=== PATIENT | female | born 1980 | race Caucasian/White ===

== ENCOUNTER 2016-06-24 12:09 | Emergency (ER) | payer MEDICAID, OTHER ==
--- NOTE | 2016-06-24 12:17 | ER Document Report ---
ED Medical Screen (RME) - General Stated Complaint: BUMPS UNDER ARM Mode of Arrival: Ambulatory Information source: Patient Notes: She presents to the emergency department with bumps under her arms. She reports bumps for months. no obvious abscess noted I have greeted and performed a rapid initial assessment of this patient. A comprehensive ED assessment and evaluation of the patient, analysis of test results and completion of the medical decision making process will be conducted by additional ED providers. TRAVEL OUTSIDE OF THE [place] IN LAST 30 DAYS: No - Related Data Allergies/Adverse Reactions: Sulfa (Sulfonamide Antibiotics) Allergy (Severe, Verified 06/24/16 12:18) hives,rash tramadol HCl [From Ultram] Allergy (Intermediate, Verified 06/24/16 12:18) Hives etodolac [From Lodine] Allergy (Verified 06/24/16 12:18) prednisone [Prednisone] Allergy (Verified 06/24/16 12:18) Past Medical History - Past Medical History Cardiac Medical History: Denies: Hx Coronary Artery Disease, Hx Heart Attack, Hx Hypertension - low Pulmonary Medical History: Denies: Hx Asthma, Hx Bronchitis, Hx COPD, Hx Pneumonia Neurological Medical History: Reports: Hx Migraine. Denies: Hx Cerebrovascular Accident, Hx Seizures Musculoskeltal Medical History: Denies Hx Arthritis Psychiatric Medical History: Reports: Hx Depression Past Surgical History: Reports: Hx Appendectomy, Hx Orthopedic Surgery - spinal fusion, left wrist - Immunizations Immunizations up to date: Yes Hx Diphtheria, Pertussis, Tetanus Vaccination: No Physical Exam - Vital signs Vitals: Temp Pulse Resp BP Pulse Ox 98.1 F 97 16 117/77 98 06/24/16 12:15 06/24/16 12:15 06/24/16 12:15 06/24/16 12:15 06/24/16 12:15 Course - Vital Signs Vital signs: Temp Pulse Resp BP Pulse Ox 98.1 F 97 16 117/77 98 06/24/16 12:15 06/24/16 12:15 06/24/16 12:15 06/24/16 12:15 06/24/16 12:15
--- NOTE | 2016-06-24 13:04 | ER Document Report ---
ED Skin Rash/Insect Bite/Abscs - General Chief Complaint: Skin Problem Stated Complaint: BUMPS UNDER ARM Time seen by provider: 12:56 Mode of Arrival: Ambulatory Information source: Patient Notes: 36-year-old female presents to ED for months under her arm and rash to her legs in between her toes. States she will need Diflucan for any antibiotics and she is itching to her arms legs and feet. TRAVEL OUTSIDE OF THE [place] IN LAST 30 DAYS: No - HPI Patient complains to provider of: Skin rash/lesion, Tender/swollen area, Other - Possible scabies as nausea Onset: Other - Several days Onset/Duration: Persistent Quality of pain: Sharp Severity: Moderate Skin Character: Abscess - Very small abscess not able to open, Erythema, Linear - Rash to legs and feet, Rash, Tenderness - Abscess under right axilla Quality of rash: Itchy - Arms and legs, Painful - abscess to axilla Exacerbated by: Denies Relieved by: Denies Similar symptoms previously: Yes Recently seen / treated by doctor: Yes - Related Data Allergies/Adverse Reactions: Sulfa (Sulfonamide Antibiotics) Allergy (Severe, Verified 06/24/16 12:18) hives,rash tramadol HCl [From Ultram] Allergy (Intermediate, Verified 06/24/16 12:18) Hives etodolac [From Lodine] Allergy (Verified 06/24/16 12:18) prednisone [Prednisone] Allergy (Verified 06/24/16 12:18) Past Medical History - General Information source: Patient - Social History Smoking Status: Current Every Day Smoker Cigarette use (# per day): Yes - 8 cigarettes a day Chew tobacco use (# tins/day): No Smoking Education Provided: Yes - less than 2 minutes Frequency of alcohol use: Rare Drug Abuse: None Occupation: none Lives with: Family Family History: Arthritis, DM, Hypertension, Malignancy Patient has suicidal ideation: No Patient has homicidal ideation: No - Past Medical History Cardiac Medical History: Reports: None Pulmonary Medical History: Reports: None EENT Medical History: Reports: None Neurological Medical History: Reports: Hx Migraine Endocrine Medical History: Reports: None Renal/ Medical History: Reports: None, Hx Ovarian Cysts Malignancy Medical History: Reports: None GI Medical History: Reports: None Musculoskeltal Medical History: Reports Hx Arthritis, Reports Hx Musculoskeletal Deformity, Reports Hx Musculoskeletal Trauma Skin Medical History: Reports Hx Cellulitis Psychiatric Medical History: Reports: Hx Depression, Hx Post Traumatic Stress Disorder, Other - Panic attacks Traumatic Medical History: Reports: None Infectious Medical History: Reports: None Past Surgical History: Reports: Hx Appendectomy, Hx Orthopedic Surgery - spinal fusion, left wrist - Immunizations Immunizations up to date: Yes Hx Diphtheria, Pertussis, Tetanus Vaccination: No Review of Systems - Review of Systems Constitutional: No symptoms reported EENT: No symptoms reported Cardiovascular: No symptoms reported Respiratory: No symptoms reported Gastrointestinal: Nausea Genitourinary: No symptoms reported Female Genitourinary: No symptoms reported Musculoskeletal: No symptoms reported Skin: Rash, Other - Swollen red area to right axilla minimal abscess Neurological/Psychological: No symptoms reported Physical Exam - Vital signs Vitals: Temp Pulse Resp BP Pulse Ox 98.1 F 97 16 117/77 98 06/24/16 12:15 06/24/16 12:15 06/24/16 12:15 06/24/16 12:15 06/24/16 12:15 Interpretation: Normal - General General appearance: Appears well, Alert - HEENT Head: Normocephalic, Atraumatic Eyes: Normal Pupils: PERRL - Respiratory Respiratory status: No respiratory distress Chest status: Nontender Breath sounds: Normal Chest palpation: Normal - Cardiovascular Rhythm: Regular Heart sounds: Normal auscultation Murmur: No - Abdominal Inspection: Normal Distension: No distension Bowel sounds: Normal Tenderness: Nontender Organomegaly: No organomegaly - Back Back: Normal, Nontender - Extremities General upper extremity: Normal inspection, Nontender, Normal color, Normal ROM , Normal temperature General lower extremity: Normal inspection, Nontender, Normal color, Normal ROM , Normal temperature, Normal weight bearing. No: Radha's sign - Neurological Neuro grossly intact: Yes Cognition: Normal Orientation: AAOx4 [place] Coma Scale Eye Opening: Spontaneous [place] Coma Scale Verbal: Oriented [place] Coma Scale Motor: Obeys Commands [place] Coma Scale Total: 15 Speech: Normal Motor strength normal: LUE, RUE, LLE, RLE Sensory: Normal - Psychological Associated symptoms: Normal affect, Normal mood - Skin Skin Temperature: Warm Skin Moisture: Dry Skin Color: Normal Skin irregularity: Abscess - Very minimal abscess to the right axilla, Rash - Probable scabies arms and legs feet Character of irregularity: Fine, Linear - Rash Irregularity with: Swelling, Tenderness, Warmth Course - Re-evaluation Re-evalutation: 06/24/16 13:16 Patient treated with promethazine for the possible scabies. She is treated with doxycycline for the abscess to the right axilla, she was given Diflucan to take one time after she has finished with her antibiotics - Vital Signs Vital signs: Temp Pulse Resp BP Pulse Ox 98.1 F 97 16 117/77 98 06/24/16 12:15 06/24/16 12:15 06/24/16 12:15 06/24/16 12:15 06/24/16 12:15 Discharge - Discharge Clinical Impression: Cutaneous abscess of right axilla, Rash and nonspecific skin eruption Condition: Stable Disposition: HOME, SELF-CARE Instructions: Family Physicians / Practices Additional Instructions: ABSCESS: You have an abscess (boil). This a pus-forming infection, usually due to staph. Some boils may be left to drain on their own, but most require lancing. From the time the tender lump first appears, it may be three or four days before the abscess is ready to mignon. Local heat and rest help at this stage of treatment. An antibiotic may prevent spread of the infection. Once the abscess is opened, packing may be placed into it. This is done so pus is not sealed inside by premature closure of the cavity. The packing will be removed at your follow-up visit or you may be advised to remove it yourself at home. Sometimes this packing must be replaced a few times during healing. The wound will heal with surprisingly little scar. Depending on the size and location of an abscess, healing can take one to four weeks. You may shower and wash the area around the incision site two or three times a day. Antibiotics may be prescribed, but are usually not necessary after an abscess has been drained. If you develop fever, chills, worsening pain, or increasing swelling in the area, call the doctor or return immediately. Scabies Your exam suggests the presence of scabies, which are microscopic parasites of the skin. These mites rell through the skin, causing severe itching. The mite can be spread to other persons by skin contact. All clothing, towels, and bedding should be washed in very hot water, set aside for a week, then washed again. You should apply scabies-killing lotion from the neck down, then wash it off after 12 hours. You may need medication for itching, as the itch persists for many days after the mites have been killed. All family members and close personal contacts should be examined. Repeat treatment may be necessary if the infestation is not eliminated with a single treatment. Call the doctor if you develop increasing swelling and redness, red streaks , tender lumps, fever, or drainage from a skin sore. DOXYCYCLINE: Doxycycline (Vibramycin, Doryx) is an antibiotic of the tetracycline family. This type of drug is useful for infections of the respiratory tract and genital tract, and is sometimes used for intestinal infections. Unlike most tetracyclines, doxycycline can be taken with food. It is longer acting, and (usually) less prone to side effects than regular tetracycline. Tetracycline antibiotics can stain immature teeth and SHOULD NOT BE TAKEN BY CHILDREN, NURSING MOTHERS, OR WOMEN. Tetracyclines can make you more prone to sunburn. Abdominal cramping, nausea, and diarrhea are occasional side effects. Women may experience vaginal yeast infections. Call the doctor at once if you develop hives, itching, shortness of breath , or lightheadedness. Fluconazole Fluconazole (Diflucan) is an antifungal drug. It is useful for serious fungal infections, but is also excellent for oral or vaginal yeast infections. Diflucan interacts with some medicines. This is a concern if you are taking anticoagulants (such as Coumadin), phenytoin (Dilantin), cyclosporin, or oral hypoglycemics (such as tolbutamide, Orinase, glipizide, Glucotrol, glyburide, DiaBeta, Glynase, and Micronase). Be sure the doctor knows if you are taking one of these medicines. We don't know how Diflucan affects . If you are planning to become , discuss this with your doctor. Diflucan has few side effects. Minor side effects may include nausea, headache, or diarrhea. Call the doctor if you develop a skin rash, shortness of breath, or other new symptoms. FOLLOW-UP CARE: Most simple abscesses will not require a follow up visit. If you had packing placed in the abscess, remove it as instructed by the physician. If you have been referred to a physician for follow-up care, call the physicians office for an appointment as you were instructed or within the next two days. If you experience worsening or a significant change in your symptoms, return to the Emergency Department at any time for re-evaluation. Prescriptions: Promethazine HCl [Phenergan 25 mg Tablet] 25 - 50 mg PO Q6HP PRN #12 tablet PRN Reason: Doxycycline Hyclate [Vibramycin 100 mg Tablet] 100 mg PO BID #20 tablet Fluconazole [Diflucan] 150 mg PO ONCE PRN #1 tablet PRN Reason: Permethrin [Elimite] 60 gm TP ONCE #60 gm Forms: Smoking Cessation Education
[2016-06-24 13:40] VITALS: BP 104/66
== END 2016-06-24 12:35 | disposition home or self-care (01) ==
LOC: ER 12:09
DX: L02.411 Cutaneous abscess of right axilla (principal); R21 Rash and other nonspecific skin eruption; F17.210 Nicotine dependence, cigarettes, uncomplicated
CPT/HCPCS: 99283

== ENCOUNTER 2016-07-25 14:32 | Emergency (ER) | payer SELFPAY ==
--- NOTE | 2016-07-25 14:56 | ER Document Report ---
ED Medical Screen (RME) - General Chief Complaint: Lower Abdominal Pain Stated Complaint: ABDOMINAL PAIN Notes: This 36-year-old female patient comes in from complaining of a two-week history of lower abdominal pain with vomiting. She thinks it may be due to . Last menstrual period started on 07/06/2016 I have greeted and performed a rapid initial assessment of this patient. A comprehensive ED assessment and evaluation of the patient, analysis of test results and completion of the medical decision making process will be conducted by additional ED providers. TRAVEL OUTSIDE OF THE [place] IN LAST 30 DAYS: No - Related Data Allergies/Adverse Reactions: Sulfa (Sulfonamide Antibiotics) Allergy (Severe, Verified 07/25/16 14:35) hives,rash tramadol HCl [From Ultram] Allergy (Intermediate, Verified 07/25/16 14:35) Hives etodolac [From Lodine] Allergy (Verified 07/25/16 14:35) prednisone [Prednisone] Allergy (Verified 07/25/16 14:35) Past Medical History - Past Medical History Cardiac Medical History: Denies: Hx Coronary Artery Disease, Hx Heart Attack, Hx Hypertension - low Pulmonary Medical History: Denies: Hx Asthma, Hx Bronchitis, Hx COPD, Hx Pneumonia Neurological Medical History: Reports: Hx Migraine. Denies: Hx Cerebrovascular Accident, Hx Seizures Renal/ Medical History: Reports: Hx Ovarian Cysts. Denies: Hx Peritoneal Dialysis Musculoskeltal Medical History: Denies Hx Arthritis, Reports Hx Musculoskeletal Deformity, Reports Hx Musculoskeletal Trauma Skin Medical History: Reports Hx Cellulitis Psychiatric Medical History: Reports: Hx Depression, Hx Post Traumatic Stress Disorder Past Surgical History: Reports: Hx Appendectomy, Hx Orthopedic Surgery - spinal fusion, left wrist - Immunizations Immunizations up to date: Yes Hx Diphtheria, Pertussis, Tetanus Vaccination: No Physical Exam - Vital signs Vitals: Temp Pulse Resp BP Pulse Ox 98.5 F 133 H 20 138/93 H 99 07/25/16 14:36 07/25/16 14:36 07/25/16 14:36 07/25/16 14:36 07/25/16 14:36 Course - Vital Signs Vital signs: Temp Pulse Resp BP Pulse Ox 98.5 F 133 H 20 138/93 H 99 07/25/16 14:36 07/25/16 14:36 07/25/16 14:36 07/25/16 14:36 07/25/16 14:36
[2016-07-25 15:29] LABS: ABSOLUTE BASOPHILS # (AUTO) 0.1 10^3/uL (0.0-0.2); ABSOLUTE EOSINOPHILS # (AUTO) 0.1 10^3/uL (0.0-0.6); ABSOLUTE LYMPHOCYTES (AUTO) 2.6 10^3/uL (0.5-4.7); ABSOLUTE MONOCYTES (AUTO) 0.8 10^3/uL (0.1-1.4); ABSOLUTE NEUT (AUTO) 12.3 10^3/uL (1.7-8.2); BASOPHILS % (AUTO) 0.5 % (0-2); EOSINOPHILS % (AUTO) 0.5 % (0-6); HEMATOCRIT 50.4 % (36.0-47.0); HEMOGLOBIN 16.9 g/dL (12.0-15.5); HGB HCT DIFFERENCE 0.3; LYMPHOCYTES % (AUTO) 16.1 % (13-45); MEAN CORPUSCULAR HEMOGLOBIN 30.3 pg (27.0-33.4); MEAN CORPUSCULAR HGB CONC 33.4 g/dL (32.0-36.0); MEAN CORPUSCULAR VOLUME 91 fl (80-97); RED BLOOD COUNT 5.56 10^6/uL (3.72-5.28); RED CELL DISTRIBUTION WIDTH 12.4 % (11.5-14.0); SEGMENTED NEUTROPHILS % (AUTO) 77.9 % (42-78); WHITE BLOOD COUNT 15.8 10^3/uL (4.0-10.5)
[2016-07-25 15:44] LABS: APPEARANCE,URINE CLOUDY; BILIRUBIN,URINE NEGATIVE (NEGATIVE); GLUCOSE, URINE NEGATIVE (NEGATIVE); KETONES,URINE NEGATIVE (NEGATIVE); LEUKOCYTE ESTERASE,URINE SMALL (NEGATIVE); NITRITE,URINE NEGATIVE (NEGATIVE); PROTEIN,URINE NEGATIVE (NEGATIVE); URINE SPECIFIC GRAVITY 1.005; UROBILINOGEN,URINE NEGATIVE mg/dL (<2.0)
[2016-07-25 16:02] LABS: ALANINE AMINOTRANSFERASE 24 U/L (9-52); ALBUMIN 5.1 g/dL (3.5-5.0); ALKALINE PHOSPHATASE 108 U/L (38-126); ANION GAP 17 (5-19); ASPARTATE AMINO TRANSFERASE 18 U/L (14-36); BILIRUBIN,DIRECT 0.4 mg/dL (0.0-0.4); BILIRUBIN,TOTAL 0.6 mg/dL (0.2-1.3); BLOOD UREA NITROGEN 12 mg/dL (7-20); CALCIUM 10.6 mg/dL (8.4-10.2); CARBON DIOXIDE 26 mmol/L (22-30); CHLORIDE 99 mmol/L (98-107); CREATININE RESULT 0.87 mg/dL (0.52-1.25); GLUCOSE 103 mg/dL (75-110); POTASSIUM 4.5 mmol/L (3.6-5.0); SODIUM 141.6 mmol/L (137-145); TOTAL PROTEIN 9.2 g/dL (6.3-8.2)
--- NOTE | 2016-07-25 17:36 | ER Document Report ---
ED GI/ - General Chief Complaint: Lower Abdominal Pain Stated Complaint: ABDOMINAL PAIN Time seen by provider: 17:36 Mode of Arrival: Ambulatory Information source: Patient Notes: 36-year-old female G0 is convinced that she is because she has had some pelvic discomfort, nausea, bilateral spontaneous nipple discharge, fatigue , and no menses since May. She has missed periods before. No dysuria frequency or urgency. No vaginal discharge with an odor. No fever or chills. TRAVEL OUTSIDE OF THE [place] IN LAST 30 DAYS: No - Related Data Allergies/Adverse Reactions: Sulfa (Sulfonamide Antibiotics) Allergy (Severe, Verified 07/25/16 14:35) hives,rash tramadol HCl [From Ultram] Allergy (Intermediate, Verified 07/25/16 14:35) Hives etodolac [From Lodine] Allergy (Verified 07/25/16 14:35) prednisone [Prednisone] Allergy (Verified 07/25/16 14:35) Past Medical History - General Information source: Patient - Social History Smoking Status: Unknown if Ever Smoked Frequency of alcohol use: None Drug Abuse: None Lives with: Family Family History: Arthritis, DM, Hypertension, Malignancy Patient has suicidal ideation: No Patient has homicidal ideation: No Neurological Medical History: Reports: Hx Migraine Renal/ Medical History: Reports: Hx Ovarian Cysts. Denies: Hx Peritoneal Dialysis Musculoskeltal Medical History: Reports Hx Musculoskeletal Deformity, Reports Hx Musculoskeletal Trauma Skin Medical History: Reports Hx Cellulitis Psychiatric Medical History: Reports: Hx Depression, Hx Post Traumatic Stress Disorder Past Surgical History: Reports: Hx Appendectomy, Hx Orthopedic Surgery - spinal fusion, left wrist - Immunizations Immunizations up to date: Yes Hx Diphtheria, Pertussis, Tetanus Vaccination: No Review of Systems - Review of Systems Constitutional: See HPI EENT: No symptoms reported Cardiovascular: No symptoms reported Respiratory: No symptoms reported Gastrointestinal: See HPI Genitourinary: No symptoms reported Female Genitourinary: See HPI Musculoskeletal: No symptoms reported Skin: No symptoms reported Hematologic/Lymphatic: No symptoms reported Neurological/Psychological: See HPI Physical Exam - Vital signs Vitals: Temp Pulse Resp BP Pulse Ox 98.5 F 133 H 20 138/93 H 99 07/25/16 14:36 07/25/16 14:36 07/25/16 14:36 07/25/16 14:36 07/25/16 14:36 Interpretation: Normal - General General appearance: Appears well, Alert In distress: None - HEENT Head: Normocephalic, Atraumatic Eyes: Normal Pupils: PERRL Mucous membranes: Normal Pharynx: Normal Neck: Supple. No: Lymphadenopathy - Respiratory Respiratory status: No respiratory distress Chest status: Nontender Breath sounds: Normal Chest palpation: Normal - Cardiovascular Rhythm: Regular Heart sounds: Normal auscultation Murmur: No - Abdominal Inspection: Normal Distension: No distension Bowel sounds: Normal Tenderness: Nontender. No: Tender Organomegaly: No organomegaly - Back Back: Normal, Nontender. No: CVA tenderness - Extremities General upper extremity: Normal inspection, Nontender, Normal color, Normal ROM , Normal temperature General lower extremity: Normal inspection, Nontender, Normal color, Normal ROM , Normal temperature, Normal weight bearing. No: Radha's sign - Neurological Neuro grossly intact: Yes Cognition: Normal Orientation: AAOx4 [place] Coma Scale Eye Opening: Spontaneous [place] Coma Scale Verbal: Oriented [place] Coma Scale Motor: Obeys Commands [place] Coma Scale Total: 15 Speech: Normal Motor strength normal: LUE, RUE, LLE, RLE Sensory: Normal - Psychological Associated symptoms: Normal affect, Normal mood - Skin Skin Temperature: Warm Skin Moisture: Dry Skin Color: Normal Skin irregularity: negative: Rash Course - Re-evaluation Re-evalutation: 07/25/16 17:53 pt wants to leave pending the TSH and will call me back for the results.. I discussed that her PCP christine primary [facility] can work up the symptoms further - I have added Prolactin level also. 07/25/16 18:00 - Vital Signs Vital signs: Temp Pulse Resp BP Pulse Ox 98.3 F 102 H 18 115/85 99 07/25/16 18:32 07/25/16 18:32 07/25/16 18:32 07/25/16 18:32 07/25/16 18:32 - Laboratory Result Diagrams: 07/25/16 15:20 07/25/16 15:20 Laboratory results interpreted by me: 07/25/16 07/25/16 07/25/16 15:20 15:20 15:20 WBC 15.8 H RBC 5.56 H Hgb 16.9 H Hct 50.4 H Absolute Neutrophils 12.3 H Calcium 10.6 H Total Protein 9.2 H Albumin 5.1 H Ur Leukocyte Esterase SMALL H Discharge - Discharge Clinical Impression: Bilateral galactorrhea, Amenorrhea, Nausea, urinary frequency, Lower abdominal pain Fatigue Qualifiers: Fatigue type: unspecified Qualified Code(s): R53.83 - Other fatigue Condition: Good Disposition: HOME, SELF-CARE Instructions: Fatigue ([facility]) Additional Instructions: you were seen in the ER today for group of symtpoms that are concerning for pituitary gland disfunction. The TSH and Prolactin level or pending, call me in 2 hours [phone] for the results your primary care doctor will have to order further testing for the symptoms. copy of labwork given to you. Please complete the patient satisfaction survey if you get one, and return it.. If you do not receive a survey, then you can go to the [facility] website, [email or web address] and place your comments about your very good care. Thank you very much. It was a pleasure being your medical provider today. Referrals: ETHAN GUZMAN I, DO [Primary Care Provider] - Follow up tomorrow
[2016-07-25 18:33] VITALS: BP 115/85
== END 2016-07-25 18:33 | disposition home or self-care (01) ==
LOC: ER 14:32
DX: N64.3 Galactorrhea not associated with childbirth (principal); N91.2 Amenorrhea, unspecified; R11.0 Nausea; R35.0 Frequency of micturition; R10.30 Lower abdominal pain, unspecified; R10.2 Pelvic and perineal pain; R53.83 Other fatigue; Z98.1 Arthrodesis status; Z88.2 Allergy status to sulfonamides
CPT/HCPCS: 36415; 80053; 81001; 84146; 84443; 84703; 85025; 99284

== ENCOUNTER 2016-11-18 11:51 | Emergency (ER) | payer SELFPAY ==
--- NOTE | 2016-11-18 12:11 | ER Document Report ---
HPI - HPI Patient complains to provider of: sore throat, rash under left axilla Onset: Other Onset/Duration: Gradual Quality of pain: Burning Severity: Severe Pain Level: 5 Context: Patient states she has had a sore throat and nasal drainage for 3-4 days. States she had a fever of 99.6. Taking occasional Benadryl for sinuses. Associated Symptoms: Fever, Rhinnorhea, Sore throat Exacerbated by: Denies Relieved by: Denies Similar symptoms previously: Yes Recently seen / treated by doctor: No - ROS ROS below otherwise negative: Yes Systems Reviewed and Negative: Yes All other systems reviewed and negative - CONSTITUTIONAL Constitutional: REPORTS: Fever - EENT EENT: REPORTS: Sore Throat, Nasal Drainage-Clear - NEURO Neurology: DENIES: Headache - CARDIOVASCULAR Cardiovascular: DENIES: Chest pain - RESPIRATORY Respiratory: DENIES: Trouble Breathing - GASTROINTESTINAL Gastrointestinal: DENIES: Abdominal Pain - URINARY Urinary: DENIES: Dysuria - REPRODUCTIVE Reproductive: DENIES: : - MUSCULOSKELETAL Musculoskeletal: DENIES: Extremity pain - DERM Skin Color: Normal Skin Problems: None Past Medical History - General Information source: Patient - Social History Smoking Status: Current Every Day Smoker Cigarette use (# per day): Yes Frequency of alcohol use: None Drug Abuse: None Lives with: Family Family History: Arthritis, DM, Hypertension, Malignancy Patient has suicidal ideation: No Patient has homicidal ideation: No Neurological Medical History: Reports: Hx Migraine Renal/ Medical History: Reports: Hx Ovarian Cysts Musculoskeltal Medical History: Reports Hx Musculoskeletal Deformity, Reports Hx Musculoskeletal Trauma Skin Medical History: Reports Hx Cellulitis Psychiatric Medical History: Reports: Hx Depression, Hx Post Traumatic Stress Disorder Past Surgical History: Reports: Hx Appendectomy, Hx Orthopedic Surgery - spinal fusion, left wrist - Immunizations Immunizations up to date: Yes Hx Diphtheria, Pertussis, Tetanus Vaccination: No Vertical Provider Document - CONSTITUTIONAL Agree With Documented VS: Yes Exam Limitations: No Limitations General Appearance: WD/WN, No Apparent Distress - INFECTION CONTROL TRAVEL OUTSIDE OF THE [place] IN LAST 30 DAYS: No - HEENT HEENT: Atraumatic, Normocephalic, Pharyngeal Erythema. negative: Pharyngeal Exudate Notes: TMs dull bilaterally. - NECK Neck: Normal Inspection, Supple. negative: Lymphadenopathy-Left, Lymphadenopathy-Right - RESPIRATORY Respiratory: Breath Sounds Normal, No Respiratory Distress O2 Sat by Pulse Oximetry: 99 - CARDIOVASCULAR Cardiovascular: Regular Rhythm, Tachycardia - GI/ABDOMEN Gastrointestinal: Abdomen Soft - MUSCULOSKELETAL/EXTREMETIES Musculoskeletal/Extremeties: MAEW - NEURO Level of Consciousness: Awake, Alert, Appropriate - DERM Integumentary: Warm, Dry, Rash Notes: scattered red papules under left axilla, pt states she has had abscesses there before but they keep coming back. Non fluctuant today. Course - Vital Signs Vital signs: Temp Pulse Resp BP Pulse Ox 99.1 F 120 H 16 125/82 99 11/18/16 12:01 11/18/16 12:01 11/18/16 12:01 11/18/16 12:01 11/18/16 12:01 Discharge - Discharge Clinical Impression: Sore throat, Hidradenitis suppurativa of left axilla Condition: Good Disposition: HOME, SELF-CARE Instructions: Sore Throat ([facility]) Additional Instructions: take meds as prescribed strep test negative, sore throat most likely due to post nasal drainage Take claritin or zyrtec daily, sudafed if congested push fluids warm compesses to left axilla follow up with surgeon regarding recurring abscesses to left axilla. No abscess noted today, Prescriptions: Amoxicillin 1 tab PO TID #30 tab
[2016-11-18] MEDS ORDERED: ACETAMINOPHEN 325 MG TABLET PO ONE (12:16)
[2016-11-18 13:14] VITALS: BP 115/89
== END 2016-11-18 13:15 | disposition home or self-care (01) ==
LOC: ER 11:51
DX: L73.2 Hidradenitis suppurativa (principal); J02.9 Acute pharyngitis, unspecified; R21 Rash and other nonspecific skin eruption; R50.9 Fever, unspecified; F17.210 Nicotine dependence, cigarettes, uncomplicated
CPT/HCPCS: 87070; 87880; 99283

== ENCOUNTER 2017-01-29 21:50 | Emergency (ER) | payer SELFPAY ==
[2017-01-29 22:05] VITALS: BP 139/96
[2017-01-29] MEDS ORDERED: DIPH/PERTUSS(ACELL)/TETANUS VAC/PF 0.5 ML SYR (>=10YO) IM ONE (23:27)
[2017-01-29] MEDS ORDERED: LIDOCAINE 1% INJ-PF (10 MG/ML) 30 ML SDV INJ ONE (23:27)
--- NOTE | 2017-01-29 23:30 | ER Document Report ---
ED Wound - General Chief Complaint: Laceration Stated Complaint: ARM LACERATION Mode of Arrival: Ambulatory Information source: Patient TRAVEL OUTSIDE OF THE [place] IN LAST 30 DAYS: No - HPI Patient complains to provider of: Laceration Occurred: Just prior to arrival Onset/Duration: Sudden Quality of pain: Burning Severity: Mild Context: Injury Skin Color: Normal Capillary refill: < 3 seconds Sensations intact: Yes Distal pulses present: Yes Associated Symptoms: denies: Bleeding, Dehiscence, Drainage, Redness, Swelling, Loss of consciousness Notes: Patient states she was walking with an open knife when she tripped over a rug in her bathroom and fell and accidentally cut her left wrist. She is noted to have a laceration that goes from the left wrist detention up the left forearm. The middle portion which is approximately 5 cm long is slightly gaped and open. The remainder of the laceration is superficial and approximated. No redness, no swelling, no numbness, tingling, weakness. No other injuries. No nausea, vomiting, diarrhea. She denies any other injuries or any other complaints at this time. - Related Data Allergies/Adverse Reactions: Sulfa (Sulfonamide Antibiotics) Allergy (Severe, Verified 07/25/16 14:35) hives,rash tramadol HCl [From Ultram] Allergy (Intermediate, Verified 07/25/16 14:35) Hives etodolac [From Lodine] Allergy (Verified 07/25/16 14:35) prednisone [Prednisone] Allergy (Verified 07/25/16 14:35) Past Medical History - Social History Smoking Status: Unknown if Ever Smoked Family History: Arthritis, DM, Hypertension, Malignancy Patient has suicidal ideation: No Patient has homicidal ideation: No - Past Medical History Cardiac Medical History: Denies: Hx Coronary Artery Disease, Hx Heart Attack, Hx Hypertension - low Pulmonary Medical History: Denies: Hx Asthma, Hx Bronchitis, Hx COPD, Hx Pneumonia Neurological Medical History: Reports: Hx Migraine. Denies: Hx Cerebrovascular Accident, Hx Seizures Renal/ Medical History: Reports: Hx Ovarian Cysts. Denies: Hx Peritoneal Dialysis Musculoskeltal Medical History: Denies Hx Arthritis, Reports Hx Musculoskeletal Deformity, Reports Hx Musculoskeletal Trauma Skin Medical History: Reports Hx Cellulitis Psychiatric Medical History: Reports: Hx Depression, Hx Post Traumatic Stress Disorder Past Surgical History: Reports: Hx Appendectomy, Hx Orthopedic Surgery - spinal fusion, left wrist - Immunizations Immunizations up to date: Yes Hx Diphtheria, Pertussis, Tetanus Vaccination: No Review of Systems - Review of Systems -: Yes All other systems reviewed and negative Physical Exam - Vital signs Vitals: Temp Pulse Resp BP Pulse Ox 98.1 F 120 H 18 139/96 H 100 01/29/17 22:02 01/29/17 22:02 01/29/17 22:02 01/29/17 22:02 01/29/17 22:02 - Notes Notes: GENERAL: alert, cooperative, nontoxic, no distress. HEAD: normocephalic, atraumatic EYES: conjunctiva pink without discharge, no external redness or swelling. EARS: no external swelling, no external redness NOSE: atraumatic, no external swelling MOUTH/THROAT: mucous membranes moist and pink NECK: soft, supple, full range of motion, no meningismus. CHEST: no distress, lungs clear and equal throughout. No wheezing, rales, rhonchi. CARDIAC: regular rate and rhythm, no murmur, normal capillary refill, normal pulses. BACK: full range of motion, no CVA tenderness. EXTREMITIES: full range of motion of all extremities. No redness, no swelling. Compartments are soft. Normal neurovascular exam. Normal pulse. Normal sensation. NEURO: alert and oriented 3, no focal deficits, full range of motion of all extremities. PYSCH: appropriate mood, affect. Patient is cooperative. SKIN: pink, warm, dry, no rash. Laceration from the wrist to the mid forearm of the left arm volar aspect. The middle portion of the laceration measuring 5 cm is through the subcutaneous tissue and slightly gaped open. The proximal and distal portions of the laceration are superficial and well approximated. There is no active bleeding. No foreign body. No tendon laceration. Fascia is intact. Course - Re-evaluation Re-evalutation: 01/29/17 23:59 Patient is nontoxic appearing with stable vitals. The patient had a laceration to her forearm. In the process of getting the laceration tray pulled and set up the patient apparently left the emergency department prior to me being able to suture her laceration. She denies any homicidal suicidal ideation, she states that this was purely an accident. She has family here with her that system engineer for that. Laceration was not actively bleeding and the patient was in no acute distress. Patient eloped the emergency department prior to laceration repair receiving any sort of discharge papers. - Vital Signs Vital signs: Temp Pulse Resp BP Pulse Ox 98.1 F 120 H 18 139/96 H 100 01/29/17 22:02 01/29/17 22:02 01/29/17 22:02 01/29/17 22:02 01/29/17 22:02 Discharge - Discharge Clinical Impression: Laceration of left forearm Qualifiers: Encounter type: initial encounter Qualified Code(s): S51.812A - Laceration without foreign body of left forearm, initial encounter Condition: Stable Disposition: ELOPED
== END 2017-01-30 | disposition left against medical advice (07) ==
LOC: ER 21:50
DX: S51.812A Laceration without foreign body of left forearm, initial encounter (principal); W01.118A Fall on same level from slipping, tripping and stumbling with subsequent striking against other sharp object, initial encounter; Y93.01 Activity, walking, marching and hiking; Y92.002 Bathroom of unspecified non-institutional (private) residence as the place of occurrence of the external cause
CPT/HCPCS: 99281

== ENCOUNTER 2017-02-04 10:37 | Emergency (ER) | payer SELFPAY ==
[2017-02-04 11:21] LABS: ABSOLUTE BASOPHILS # (AUTO) 0.1 10^3/uL (0.0-0.2); ABSOLUTE EOSINOPHILS # (AUTO) 0.3 10^3/uL (0.0-0.6); ABSOLUTE LYMPHOCYTES (AUTO) 1.9 10^3/uL (0.5-4.7); ABSOLUTE MONOCYTES (AUTO) 0.9 10^3/uL (0.1-1.4); ABSOLUTE NEUT (AUTO) 10.4 10^3/uL (1.7-8.2); BASOPHILS % (AUTO) 0.7 % (0-2); EOSINOPHILS % (AUTO) 2.3 % (0-6); HEMATOCRIT 41.7 % (36.0-47.0); HEMOGLOBIN 14.4 g/dL (12.0-15.5); HGB HCT DIFFERENCE 1.5; LYMPHOCYTES % (AUTO) 13.8 % (13-45); MEAN CORPUSCULAR HEMOGLOBIN 31.8 pg (27.0-33.4); MEAN CORPUSCULAR HGB CONC 34.5 g/dL (32.0-36.0); MEAN CORPUSCULAR VOLUME 92 fl (80-97); MONOCYTES % (AUTO) 6.3 % (3-13); RED BLOOD COUNT 4.53 10^6/uL (3.72-5.28); RED CELL DISTRIBUTION WIDTH 13.3 % (11.5-14.0); SEGMENTED NEUTROPHILS % (AUTO) 76.9 % (42-78); WHITE BLOOD COUNT 13.5 10^3/uL (4.0-10.5)
[2017-02-04 11:34] LABS: ALANINE AMINOTRANSFERASE 62 U/L (9-52); ALKALINE PHOSPHATASE 92 U/L (38-126); ANION GAP 15 (5-19); ASPARTATE AMINO TRANSFERASE 43 U/L (14-36); BILIRUBIN,DIRECT 0.5 mg/dL (0.0-0.4); BLOOD UREA NITROGEN 8 mg/dL (7-20); CARBON DIOXIDE 28 mmol/L (22-30); CHLORIDE 102 mmol/L (98-107); CREATININE RESULT 0.71 mg/dL (0.52-1.25); GLUCOSE 85 mg/dL (75-110); LIPASE 38.7 U/L (23-300); POTASSIUM 4.1 mmol/L (3.6-5.0); SODIUM 144.8 mmol/L (137-145); TOTAL PROTEIN 8.6 g/dL (6.3-8.2)
[2017-02-04 12:03] LABS: AMORPHOUS SEDIMENT,URINE TRACE /HPF; APPEARANCE,URINE TURBID; BILIRUBIN,URINE NEGATIVE (NEGATIVE); GLUCOSE, URINE NEGATIVE (NEGATIVE); KETONES,URINE TRACE mg/dL (NEGATIVE); LEUKOCYTE ESTERASE,URINE LARGE (NEGATIVE); NITRITE,URINE NEGATIVE (NEGATIVE); PROTEIN,URINE 30 mg/dL (NEGATIVE); URINE SPECIFIC GRAVITY 1.015
--- NOTE | 2017-02-04 12:07 | ER Document Report ---
ED General - General Chief Complaint: Abdominal Pain Stated Complaint: ABDOMINAL PAIN Time Seen by Provider: 02/04/17 10:48 Mode of Arrival: Ambulatory Information source: Patient Notes: 36-year-old female presents with complaints of abdominal pain. Patient notes she has been having this pain for a few weeks admits to burning on urination. Patient also states that her abdomen has been distended she believes she is even though multiple doctors have told her she is not . Patient states her breasts are getting bigger. Patient denies any fevers or chills admits to nausea worse in the mornings TRAVEL OUTSIDE OF THE [place] IN LAST 30 DAYS: No - HPI Onset: Last week Onset/Duration: Persistent Quality of pain: Cramping Severity: Mild Pain Level: 1 Associated symptoms: Diarrhea, Nausea, Vomiting Exacerbated by: Denies Relieved by: Denies Similar symptoms previously: No Recently seen / treated by doctor: No - Related Data Allergies/Adverse Reactions: Sulfa (Sulfonamide Antibiotics) Allergy (Severe, Verified 07/25/16 14:35) hives,rash tramadol HCl [From Ultram] Allergy (Intermediate, Verified 07/25/16 14:35) Hives etodolac [From Lodine] Allergy (Verified 07/25/16 14:35) prednisone [Prednisone] Allergy (Verified 07/25/16 14:35) Past Medical History - Social History Smoking Status: Never Smoker Cigarette use (# per day): No Chew tobacco use (# tins/day): No Smoking Education Provided: No Family History: Arthritis, DM, Hypertension, Malignancy - Past Medical History Cardiac Medical History: Denies: Hx Coronary Artery Disease, Hx Heart Attack, Hx Hypertension - low Pulmonary Medical History: Denies: Hx Asthma, Hx Bronchitis, Hx COPD, Hx Pneumonia Neurological Medical History: Reports: Hx Migraine. Denies: Hx Cerebrovascular Accident, Hx Seizures Renal/ Medical History: Reports: Hx Ovarian Cysts. Denies: Hx Peritoneal Dialysis Musculoskeltal Medical History: Denies Hx Arthritis, Reports Hx Musculoskeletal Deformity, Reports Hx Musculoskeletal Trauma Skin Medical History: Reports Hx Cellulitis Psychiatric Medical History: Reports: Hx Depression, Hx Post Traumatic Stress Disorder Past Surgical History: Reports: Hx Appendectomy, Hx Orthopedic Surgery - spinal fusion, left wrist - Immunizations Immunizations up to date: Yes Hx Diphtheria, Pertussis, Tetanus Vaccination: No Review of Systems - Review of Systems Notes: REVIEW OF SYSTEMS: CONSTITUTIONAL : Denies fever, chills, or sweats. Denies recent illness. EENT: Denies eye, ear, throat, or mouth pain or symptoms. Denies nasal or sinus congestion or discharge. Denies throat, tongue, or mouth swelling or difficulty swallowing. CARDIOVASCULAR: Denies chest pain. Denies palpitations or racing or irregular heart beat. Denies ankle edema. RESPIRATORY: Denies cough, cold, or chest congestion. Denies shortness of breath, difficulty breathing, or wheezing. GASTROINTESTINAL: Admits to abdominal pain nausea vomiting GENITOURINARY: Denies difficulty urinating, painful urination, burning, frequency, blood in urine, or discharge. FEMALE GENITOURINARY: Denies vaginal bleeding, heavy or abnormal periods, irregular periods. Denies vaginal discharge or odor. MUSCULOSKELETAL: Denies back or neck pain or stiffness. Denies joint pain or swelling. SKIN: Denies rash, lesions or sores. HEMATOLOGIC : Denies easy bruising or bleeding. LYMPHATIC: Denies swollen, enlarged glands. NEUROLOGICAL: Denies confusion or altered mental status. Denies passing out or loss of consciousness. Denies dizziness or lightheadedness. Denies headache. Denies weakness or paralysis or loss of use of either side. Denies problems with gait or speech. Denies sensory loss, numbness, or tingling. Denies seizures. PSYCHIATRIC: Denies anxiety or stress. Denies depression, suicidal ideation, or homicidal ideation. ALL OTHER SYSTEMS REVIEWED AND NEGATIVE. PHYSICAL EXAMINATION: GENERAL: Well-appearing, well-nourished and in no acute distress. HEAD: Atraumatic, normocephalic. EYES: Pupils equal round and reactive to light, extraocular movements intact, conjunctiva are normal. ENT: Nares patent, oropharynx clear without exudates. Moist mucous membranes. NECK: Normal range of motion, supple without lymphadenopathy LUNGS: Breath sounds clear to auscultation bilaterally and equal. No wheezes rales or rhonchi. HEART: Regular rate and rhythm without murmurs ABDOMEN: Soft, nontender, nondistended abdomen. No guarding, no rebound. No masses appreciated. Female : deferred Musculoskeletal: Normal range of motion, no pitting or edema. No cyanosis. NEUROLOGICAL: Cranial nerves grossly intact. Normal speech, normal gait. Normal sensory, motor exams PSYCH: Normal mood, normal affect. SKIN: Warm, Dry, normal turgor, no rashes or lesions noted. Dictation was performed using [employer] voice recognition software Physical Exam - Vital signs Vitals: Temp Pulse Resp BP Pulse Ox 98.9 F 103 H 20 131/87 H 98 02/04/17 10:45 02/04/17 10:45 02/04/17 10:45 02/04/17 10:45 02/04/17 10:45 Course - Re-evaluation Re-evalutation: 02/04/17 14:33 On the physical examination the patient is in no distress, ultrasound was performed at bedside to show the patient that she is in fact not . Patient denies any fevers at this time. Given that she overall looks well is in no distress is not she is noted to have a urinary tract infection which will be treated with antibiotics. Patient does admit that physicians think she is crazy but that she monitors her abdomen and believes there is a heartbeat besides her own and there After performing a Medical Screening Examination, I estimate there is LOW risk for ACUTE APPENDICITIS, BOWEL OBSTRUCTION, ACUTE CHOLECYSTITIS, PERFORATED DIVERTICULITIS, INCARCERATED HERNIA, PANCREATITIS, PELVIC INFLAMMATORY DISEASE, PERFORATED ULCER, ECTOPIC , or TUBO-OVARIAN ABSCESS, thus I consider the discharge disposition reasonable. Also, there is no evidence or peritonitis , sepsis, or toxicity. I have reevaluated this patient multiple times and no significant life threatening changes are noted. The patient and I have discussed the diagnosis and risks, and we agree with discharging home with close follow-up with the understanding that symptoms and presentations can change. We also discussed returning to the Emergency Department immediately if new or worsening symptoms occur. We have discussed the symptoms which are most concerning (e.g., bloody stool, fever, changing or worsening pain, vomiting) that necessitate immediate return. - Vital Signs Vital signs: Temp Pulse Resp BP Pulse Ox 98.2 F 98 18 117/85 97 02/04/17 12:23 02/04/17 12:23 02/04/17 12:23 02/04/17 12:23 02/04/17 12:23 - Laboratory Result Diagrams: 02/04/17 11:08 02/04/17 11:08 Laboratory results interpreted by me: 02/04/17 02/04/17 02/04/17 11:08 11:08 11:43 WBC 13.5 H Absolute Neutrophils 10.4 H Direct Bilirubin 0.5 H AST 43 H ALT 62 H Total Protein 8.6 H Urine Protein 30 H Urine Ketones TRACE H Urine Blood SMALL H Urine Urobilinogen 4.0 H Ur Leukocyte Esterase LARGE H Discharge - Discharge Clinical Impression: UTI (urinary tract infection) Qualifiers: Urinary tract infection type: acute cystitis Hematuria presence: without hematuria Qualified Code(s): N30.00 - Acute cystitis without hematuria Abdominal pain Qualifiers: Abdominal location: generalized Qualified Code(s): R10.84 - Generalized abdominal pain Condition: Stable Disposition: HOME, SELF-CARE Instructions: Urinary Tract Infection ([facility]) Additional Instructions: Follow up with your physician tomorrow for further care or return to the ED IMMEDIATELY if symptoms worsen or new concerns occur. If you cannot afford to follow up with your primary care physician a list of low cost clinics have been provided at the end of your discharge papers as well. Prescriptions: Ciprofloxacin HCl [Cipro 500 mg Tablet] 500 mg PO BID #20 tablet Metoclopramide HCl [Reglan 10 mg Tablet] 1 - 2 tab PO ASDIR PRN #25 tablet PRN Reason:
[2017-02-04] MEDS ORDERED: METOCLOPRAMIDE HCL 10 MG TABLET PO ONE (12:10)
[2017-02-04] MEDS ORDERED: DICYCLOMINE HCL 20 MG TABLET PO ONE (12:10)
[2017-02-04 12:25] VITALS: BP 117/85
== END 2017-02-04 12:25 | disposition home or self-care (01) ==
LOC: ER 10:37
DX: N30.00 Acute cystitis without hematuria (principal); R10.84 Generalized abdominal pain; R19.7 Diarrhea, unspecified; R11.2 Nausea with vomiting, unspecified; R30.0 Dysuria; Z88.2 Allergy status to sulfonamides; Z88.5 Allergy status to narcotic agent; Z88.8 Allergy status to other drugs, medicaments and biological substances; Z90.49 Acquired absence of other specified parts of digestive tract; Z87.42 Personal history of other diseases of the female genital tract
CPT/HCPCS: 36415; 80053; 81001; 81025; 83690; 84702; 85025; 99284; J3490

== ENCOUNTER 2017-05-25 21:33 | Emergency (ER) | payer SELFPAY ==
[2017-05-25] MEDS ORDERED: PENICILLIN V POTASSIUM 500 MG TABLET PO ONE (23:33)
[2017-05-25] MEDS ORDERED: LIDOCAINE 2% VISCOUS SOLN 20 ML UDCUP PO ONE (23:33)
[2017-05-25] MEDS ORDERED: IBUPROFEN 600 MG TABLET PO ONE (23:33)
[2017-05-25] MEDS ORDERED: DIPHENHYDRAMINE HCL 50 MG CAPSULE PO ONE (23:40)
[2017-05-25] MEDS ORDERED: PROCHLORPERAZINE MALEATE 10 MG TABLET PO ONE (23:40)
--- NOTE | 2017-05-25 23:40 | ER Document Report ---
ED ENT - General Chief Complaint: Headache Stated Complaint: FACIAL SWELLING Time Seen by Provider: 05/25/17 22:53 Mode of Arrival: Ambulatory Information source: Patient Notes: The 37-year-old female presented to ED for left-sided gums cheek swelling and headache on the left side of her head due to a dental pain. States she has had a toothache for a long while but has not had the money of way to go any has a tooth fixed. TRAVEL OUTSIDE OF THE [place] IN LAST 30 DAYS: No - HPI Patient complains to provider of: Dental problem, Other - Swelling to the left side of her mouth Onset: Other Onset/Duration: Gradual Quality of pain: Sharp - Throbbing Severity: Severe Pain Level: 5 Context: Other - Headache toe pain Location of pain: Tooth Associated symptoms: Dental pain - Swelling to the left jaw no facial swelling noted, Dental caries Similar symptoms previously: Yes Recently seen / treated by doctor: No - Related Data Allergies/Adverse Reactions: Sulfa (Sulfonamide Antibiotics) Allergy (Severe, Verified 02/15/17 20:59) hives,rash tramadol HCl [From Ultram] Allergy (Intermediate, Verified 02/15/17 20:59) Hives etodolac [From Lodine] Allergy (Verified 02/15/17 20:59) prednisone [Prednisone] Allergy (Verified 02/15/17 20:59) Past Medical History - General Information source: Patient - Social History Smoking Status: Current Every Day Smoker Cigarette use (# per day): Yes Smoking Education Provided: Yes - 4 minutes Frequency of alcohol use: None Drug Abuse: None Lives with: Parents Family History: Arthritis, DM, Hypertension, Malignancy Patient has suicidal ideation: No Patient has homicidal ideation: No - Past Medical History Cardiac Medical History: Reports: None Comment Only: Hx Hypertension - low EENT Medical History: Reports: None Neurological Medical History: Reports: Hx Migraine. Denies: Hx Cerebrovascular Accident, Hx Seizures Endocrine Medical History: Reports: None Renal/ Medical History: Reports: Hx Ovarian Cysts Malignancy Medical History: Reports: None GI Medical History: Reports: None Musculoskeltal Medical History: Reports Hx Musculoskeletal Deformity, Reports Hx Musculoskeletal Trauma Skin Medical History: Reports Hx Cellulitis Psychiatric Medical History: Reports: Hx Depression, Hx Post Traumatic Stress Disorder Traumatic Medical History: Reports: None Infectious Medical History: Reports: None Past Surgical History: Reports: Hx Appendectomy, Hx Orthopedic Surgery - spinal fusion, left wrist - Immunizations Immunizations up to date: Yes Hx Diphtheria, Pertussis, Tetanus Vaccination: No Review of Systems - Review of Systems Notes: Normal Constitutional: No symptoms reported EENT: Mouth swelling, Dental problem. denies: Difficulty swallowing, Throat swelling Cardiovascular: No symptoms reported Respiratory: No symptoms reported Gastrointestinal: No symptoms reported Genitourinary: No symptoms reported Female Genitourinary: No symptoms reported Musculoskeletal: No symptoms reported Skin: No symptoms reported Hematologic/Lymphatic: No symptoms reported Neurological/Psychological: Headaches - Caused by her dental pain -: Yes All other systems reviewed and negative Physical Exam - Vital signs Vitals: Temp Pulse Resp BP Pulse Ox 99.8 F 91 22 H 111/74 100 05/25/17 21:45 05/25/17 21:45 05/25/17 21:45 05/25/17 21:45 05/25/17 21:45 Interpretation: Normal - General General appearance: Appears well, Alert - HEENT Head: Normocephalic, Atraumatic Eyes: Normal Pupils: PERRL Ears: Normal External canal: Normal Tympanic membrane: Normal Sinus: Normal Nasal: Normal Mouth/Lips: Normal Teeth diagram: 1 - Dental caries with part of tooth missing states it is been there for at least 6-8 months getting worse over the last couple days. States she does not have the money or dental insurance to go to the dentist - Respiratory Respiratory status: No respiratory distress Chest status: Nontender Breath sounds: Normal Chest palpation: Normal - Cardiovascular Rhythm: Regular Heart sounds: Normal auscultation Murmur: No - Abdominal Inspection: Normal Distension: No distension Bowel sounds: Normal Tenderness: Nontender Organomegaly: No organomegaly - Back Back: Normal, Nontender - Extremities General upper extremity: Normal inspection, Nontender, Normal color, Normal ROM , Normal temperature General lower extremity: Normal inspection, Nontender, Normal color, Normal ROM , Normal temperature, Normal weight bearing. No: Radha's sign - Neurological Neuro grossly intact: Yes Cognition: Normal Orientation: AAOx4 [place] Coma Scale Eye Opening: Spontaneous [place] Coma Scale Verbal: Oriented [place] Coma Scale Motor: Obeys Commands [place] Coma Scale Total: 15 Speech: Normal Motor strength normal: LUE, RUE, LLE, RLE Sensory: Normal - Psychological Associated symptoms: Normal affect, Normal mood - Skin Skin Temperature: Warm Skin Moisture: Dry Skin Color: Normal Course - Re-evaluation Re-evalutation: 05/26/17 07:08 Patient was seen in the ED earlier this evening for dental pain and a headache. She states she does not have the insurance or money to go and have the dental cavities fixed. I have informed her that the only definitive treatment for dental cavities are is a dentist removal of the teeth. I treated her in the emergency room with Penicillin VK and viscous lidocaine for the dental pain and with Compazine Benadryl and ibuprofen for her headache. I also discharged her home with a prescription for penicillin and Compazine. Patient was instructed to please follow-up with a dentist as soon as possible. Patient verbalized understanding of teaching and the need to follow-up with her dentist. I made sure she saw the care in [facility]'s phone number to call for follow-up. Patient denied any other questions or concerns before discharge - Vital Signs Vital signs: Temp Pulse Resp BP Pulse Ox 98.2 F 62 18 124/84 98 05/26/17 00:24 05/26/17 00:24 05/26/17 00:24 05/26/17 00:24 05/26/17 00:24 Discharge - Discharge Clinical Impression: Pain due to dental caries Headache Qualifiers: Headache type: unspecified Headache chronicity pattern: unspecified pattern Intractability: not intractable Qualified Code(s): R51 - Headache Condition: Stable Disposition: HOME, SELF-CARE Instructions: Family Physicians / Practices Additional Instructions: HEADACHE: The physician does not feel that the headache you are experiencing has a serious underlying cause. Most headaches are due to emotional stress, with resultant muscle tension (tension headache). Occasionally, headaches are secondary to changes in the blood vessels of the scalp (vascular headache and migraine headache). Sometimes, a headache is the first symptom of another developing illness, such as a viral infection. You have no evidence of stroke, bleeding, meningitis, or other serious cause of your headache. The treatment of headaches varies with the severity and cause of the pain. Not all headaches need pain shots. In fact, there is evidence that using narcotics for headaches may make them worse in the long run. The physician will determine the therapy that's in your best interest. If you develop a fever, if the headache is different from any you've previously experienced, or if the headache progressively worsens, then call your physician at once or go to the emergency room. USE OF DIPHENHYDRAMINE: Diphenhydramine (Benadryl) is an antihistamine and has been recommended to help treat your headache and to prevent side effects of other medications used to treat headaches. The medication can be repeated four times daily. Age Elixir (12.5 mg/tsp) 25 mg pill adult 1-2 tabs Antihistamines may cause drowsiness, especially with the first dose. Do not operate machinery or drive while under the effects of the medication. Do not combine the medication with alcohol, or with any other medication without talking to your doctor. COMPAZINE FOR HEADACHE: You have received therapy for headaches, using Compazine. This treatment is dramatically successful in relieving the headache in about 50 percent of cases. When it works, it provides a rapid method of eliminating the headache without resorting to narcotics (and the problems associated with them). Most patients still feel fully alert after the Compazine, but others may be slightly drowsy. It's best not to drive or work with machinery for six to eight hours. Do not take alcohol or other medication unless you discuss it with the doctor. If you develop tightness and spasms in your muscles, especially the neck and tongue, you should return. This is a side effect which can be treated. TOOTHACHE: Your pain is due to dental decay. The tooth must be repaired in order for you to feel better. You will, therefore, be referred to a dentist. We do not have dentists on the staff at [facility]. Severe swelling or drainage around a tooth usually means a dental abscess. This also requires evaluation and treatment by the dentist, but antibiotics may be prescribed while awaiting dental treatment. You should be rechecked immediately if you develop major swelling of the face, increasing pain, a lump in the jaw or gums, headache, difficulty swallowing, or fever. PENICILLIN V K: You have been given a prescription for Penicillin VK. Your physician has determined that this is the best antibiotic for your condition. Pen VK can be taken with meals, however more of the antibiotic gets into the bloodstream if it's taken on an empty stomach. Penicillin usually has no side effects. However, allergy to penicillins is common. If you have had an allergic reaction to any drug of the penicillin family, you should never take any other penicillin. Notify your doctor at once if you develop hives, itching, swelling, faintness, or shortness of breath. Please gargle with warm salt and soda water every 3-4 hours. Use the viscous lidocaine provided for you in the syringe by placing a small amount on your finger and rub it to the painful area. You can do this every 3-4 hours. Salt and soda solution 1 quart of water 1 tablespoon of salt 1 teaspoon of baking soda Mixed 3 ingredients together and boil for 1 minute Placed in a covered quart jar Use 1/2 ounce of cold solution to gargle 3 times a day Main treatment for this dental pain is a dentist. FOLLOW-UP CARE: You have been referred for follow-up care to the dentists listed below. Call the dentists office for an appointment as you were instructed or within the next two days. If you experience worsening or a significant change in your symptoms, notify the physician immediately or return to the Emergency Department at any time for re-evaluation. [facility] [address] [place], [place] [phone] [facility] [address] [place] [address] [facility] [address] [facility] [address] [facility] [place] [address] [email or web address] [address] [place] [address] Sunday- 8:00am to 5:00 pm Will see patients from other [facility]. Charges based on income and family size and accepts Medicare, Medicaid, and Insurances Will pull molars [facility] [place] [address] Hours of Operation 8:00 am - 4:30 pm weekdays The following dental offices accept Medicaid: [facility] Dr. Fajardo Dr. Conde Dr. Hall Dr. Gonzalez Tomás Resendez, Yessy, and [facility] Dr. Scott ([place]) Dr. Harris ([place]) [facility] Drs. Ramírez and Ramu ([place]) Dr. Ross ([place]) [facility] Dr. Link ([place]) Drs. Aguero and ([place]) Medicaid Care Line Prescriptions: Penicillin V Potassium [Penicillin Vk 500 mg Tablet] 500 mg PO BID #20 tablet Prochlorperazine Maleate [Compazine 10 mg Tablet] 10 mg PO ASDIR PRN #10 tablet PRN Reason:
[2017-05-26 00:25] VITALS: BP 124/84
== END 2017-05-26 00:24 | disposition home or self-care (01) ==
LOC: ER 21:33
DX: K02.9 Dental caries, unspecified (principal); R51 Headache; R22.0 Localized swelling, mass and lump, head; F17.210 Nicotine dependence, cigarettes, uncomplicated; Z88.2 Allergy status to sulfonamides
CPT/HCPCS: 99283; J3490; S0183

== ENCOUNTER 2018-01-26 20:01 | Emergency (ER) | payer SELFPAY ==
--- NOTE | 2018-01-26 20:22 | ER Document Report ---
ED Medical Screen (RME) - General Chief Complaint: Cough Stated Complaint: THROAT PAIN, COUGH Time Seen by Provider: 01/26/18 20:20 Mode of Arrival: Ambulatory Information source: Patient TRAVEL OUTSIDE OF THE [place] IN LAST 30 DAYS: No - HPI Patient complains to provider of: cough; sore throat Onset: Yesterday - pt. with c/o cough productive of green sputum and sore throat for the past 1-2 days. Pt. continues to smoke - Related Data Allergies/Adverse Reactions: Sulfa (Sulfonamide Antibiotics) Allergy (Severe, Verified 02/15/17 20:59) hives,rash tramadol HCl [From Ultram] Allergy (Intermediate, Verified 02/15/17 20:59) Hives etodolac [From Lodine] Allergy (Verified 02/15/17 20:59) prednisone [Prednisone] Allergy (Verified 02/15/17 20:59) Past Medical History - Past Medical History Cardiac Medical History: Denies: Hx Coronary Artery Disease, Hx Heart Attack Comment Only: Hx Hypertension - low Pulmonary Medical History: Denies: Hx Asthma, Hx Bronchitis, Hx COPD, Hx Pneumonia Neurological Medical History: Reports: Hx Migraine. Denies: Hx Cerebrovascular Accident, Hx Seizures Renal/ Medical History: Reports: Hx Ovarian Cysts. Denies: Hx Peritoneal Dialysis Musculoskeltal Medical History: Denies Hx Arthritis, Reports Hx Musculoskeletal Deformity, Reports Hx Musculoskeletal Trauma Skin Medical History: Reports Hx Cellulitis Psychiatric Medical History: Reports: Hx Depression, Hx Post Traumatic Stress Disorder Past Surgical History: Reports: Hx Appendectomy, Hx Orthopedic Surgery - spinal fusion, left wrist - Immunizations Immunizations up to date: Yes Hx Diphtheria, Pertussis, Tetanus Vaccination: No Physical Exam - Vital signs Vitals: Temp Pulse Resp BP Pulse Ox 98.0 F 95 16 111/92 H 96 01/26/18 20:06 01/26/18 20:06 01/26/18 20:06 01/26/18 20:06 01/26/18 20:06 Course - Vital Signs Vital signs: Temp Pulse Resp BP Pulse Ox 98.0 F 95 16 111/92 H 96 01/26/18 20:06 01/26/18 20:06 01/26/18 20:06 01/26/18 20:06 01/26/18 20:06
[2018-01-26] MEDS ORDERED: BENZONATATE 100 MG CAPSULE PO ONE (20:24)
--- NOTE | 2018-01-26 20:55 | RADIOLOGY REPORT (SQ) ---
EXAM DESCRIPTION: CHEST 2 VIEWS COMPLETED DATE/TIME: 01/26/2018 8:37 pm REASON FOR STUDY: productive cough COMPARISON: 02/15/2017. EXAM PARAMETERS: NUMBER OF VIEWS: two views TECHNIQUE: Digital Frontal and Lateral radiographic views of the chest acquired. RADIATION DOSE: NA LIMITATIONS: none FINDINGS: LUNGS AND PLEURA: No opacities, masses or pneumothorax. No pleural effusion. MEDIASTINUM AND HILAR STRUCTURES: No masses or contour abnormalities. HEART AND VASCULAR STRUCTURES: Heart normal size. No evidence for failure. BONES: No acute findings. HARDWARE: None in the chest. OTHER: No other significant finding. IMPRESSION: NO ACUTE RADIOGRAPHIC FINDING IN THE CHEST. TECHNICAL DOCUMENTATION: JOB ID: [id number] [employer]- All Rights Reserved Reading location - IP/workstation name: [email or web address]
[2018-01-26] MEDS ORDERED: LORATADINE 10 MG TABLET PO ONE (21:09)
[2018-01-26] MEDS ORDERED: GUAIFENESIN 600 MG TABLET.SA PO ONE (21:09)
[2018-01-26] MEDS ORDERED: PSEUDOEPHEDRINE HCL 30 MG TABLET PO ONE (21:09)
[2018-01-26 21:10] VITALS: BP 106/72
[2018-01-26] MEDS ORDERED: IBUPROFEN 600 MG TABLET PO ONE (21:10)
--- NOTE | 2018-01-26 21:14 | ER Document Report ---
HPI - HPI Patient complains to provider of: Cough congestion sore throat Onset: Other - 1-2 days Onset/Duration: Gradual Quality of pain: Sharp Severity: Moderate Pain Level: 4 Context: 37-year-old female presented to ED for complaint of cough cold congestion sore throat for the past 1-2 days. She stated she continues to smoke 1/2-1 pack/ day. She denied any fevers. Patient was alert and oriented respirations regular and unlabored speaking in full sentences. Associated Symptoms: Body/muscle aches, Chills, Productive cough, Rhinnorhea, Sinus pain/drainage, Sore throat Exacerbated by: Coughing Relieved by: Denies Similar symptoms previously: Yes Recently seen / treated by doctor: No - ROS ROS below otherwise negative: Yes - CONSTITUTIONAL Constitutional: DENIES: Fever, Chills - EENT EENT: REPORTS: Sore Throat, Nasal Drainage-Purulent - NEURO Neurology: REPORTS: Headache. DENIES: Weakness, Vision blurred, Dizzinesss / Vertigo - CARDIOVASCULAR Cardiovascular: DENIES: Chest pain - RESPIRATORY Respiratory: REPORTS: Coughing. DENIES: Trouble Breathing - GASTROINTESTINAL Gastrointestinal: DENIES: Abdominal Pain, Nausea, Patient vomiting, Diarrhea, Constipation, Black / Bloody Stools - URINARY Urinary: DENIES: Dysuria, Urgency, Frequency - REPRODUCTIVE Reproductive: DENIES: : - MUSCULOSKELETAL Musculoskeletal: REPORTS: Extremity pain - Body ache, Back Pain - Body aches. DENIES: Neck Pain, Swelling - DERM Skin Color: Normal Skin Problems: None Past Medical History - General Information source: Patient - Social History Smoking Status: Current Every Day Smoker Cigarette use (# per day): Yes - 1/2-1 pack/day Chew tobacco use (# tins/day): No Smoking Education Provided: Yes - 4 minutes Frequency of alcohol use: Rare Drug Abuse: None Lives with: Spouse/Significant other Family History: Arthritis, DM, Hypertension, Malignancy Patient has suicidal ideation: No Patient has homicidal ideation: No - Past Medical History Cardiac Medical History: Reports: None Comment Only: Hx Hypertension - low Pulmonary Medical History: Reports: None EENT Medical History: Reports: None Neurological Medical History: Reports: Hx Migraine Endocrine Medical History: Reports: None Renal/ Medical History: Reports: Hx Ovarian Cysts Malignancy Medical History: Reports: None GI Medical History: Reports: None Musculoskeletal Medical History: Reports Hx Musculoskeletal Deformity, Reports Hx Musculoskeletal Trauma Skin Medical History: Reports Hx Cellulitis Psychiatric Medical History: Reports: Hx Depression, Hx Post Traumatic Stress Disorder Traumatic Medical History: Reports: None Infectious Medical History: Reports: None Past Surgical History: Reports: Hx Appendectomy, Hx Orthopedic Surgery - spinal fusion disc, right wrist - Immunizations Immunizations up to date: Yes Hx Diphtheria, Pertussis, Tetanus Vaccination: No Vertical Provider Document - CONSTITUTIONAL Agree With Documented VS: Yes Exam Limitations: No Limitations General Appearance: WD/WN, No Apparent Distress - INFECTION CONTROL TRAVEL OUTSIDE OF THE [place] IN LAST 30 DAYS: No - HEENT HEENT: Atraumatic, Normocephalic, PERRLA. negative: Normal ENT Exam - Greenish yellow nasal drainage with red swollen nasal mucosa - NECK Neck: Normal Inspection - RESPIRATORY Respiratory: Breath Sounds Normal, No Respiratory Distress, Chest Non-Tender - CARDIOVASCULAR Cardiovascular: Regular Rate, Regular Rhythm - GI/ABDOMEN Gastrointestinal: Abdomen Soft, Abdomen Non-Tender, No Organomegaly, Normal Bowel Sounds - MUSCULOSKELETAL/EXTREMETIES Musculoskeletal/Extremeties: MAEW, FROM, Non-Tender - NEURO Level of Consciousness: Awake, Appropriate Deep Tendon Reflexes: 2+ - DERM Integumentary: Warm, Dry, No Rash Course - Vital Signs Vital signs: Temp Pulse Resp BP Pulse Ox 98.0 F 95 16 111/92 H 96 01/26/18 20:06 01/26/18 20:06 01/26/18 20:06 01/26/18 20:06 01/26/18 20:06 Discharge - Discharge Clinical Impression: Viral sore throat URI (upper respiratory infection) Qualifiers: URI type: unspecified URI Qualified Code(s): J06.9 - Acute upper respiratory infection, unspecified Condition: Stable Disposition: HOME, SELF-CARE Instructions: Family Physicians / Practices Additional Instructions: UPPER RESPIRATORY ILLNESS: You have a viral infection of the respiratory passages -- a "cold." This common infection causes nasal congestion, drainage, and often sore throat and cough. It is highly contagious. The disease usually lasts about 10 to 14 days. There is no "cure" for the viral infection -- it must run its course. If there is a complication, such as bacterial infection in the nose, sinuses, middle ear, or bronchial tubes, antibiotics may be required. The antibiotics won't affect the virus. Drink plenty of fluids. A humidifier may help. An expectorant medication or decongestant may make you more comfortable. Use acetaminophen or ibuprofen for fever or aches. See the doctor if fever persists over two days, if there is any significant worsening of your symptoms, or if you simply fail to improve as expected. DECONGESTANT MEDICATION: A decongestant medicine has been suggested. Often this medicine is combined in the same tablet with an antihistamine or expectorant. This type of medicine is helpful in treating a bad cold or sinus condition, as well as in treatment of the nasal congestion of hay fever. It is not of much benefit for lung infections. Decongestant medicines are related to stimulants. They can cause an increase in blood pressure and heart rate. Persons with heart disease and high blood pressure should not take decongestants without discussing this with the physician. If you develop palpitations, chest pain, headache, or tremors, stop the medicine and consult your physician. USE OF ACETAMINOPHEN (Tylenol): Acetaminophen may be taken for pain relief or fever control. It's much safer than aspirin, offering a wider range of "safe" dosages. It is safe during . Some brand names are Tylenol, Panadol, Datril, Anacin 3, Tempra, and Liquiprin. Acetaminophen can be repeated every four hours. The following are maximum recommended dosages: >89 pounds or adults 650 mg to 900 mg Acetaminophen can be repeated every four hours. Maximum dose not to exceed 4000 mg a day. You have been treated with Claritin 10 mg, Sudafed 30 mg, Mucinex 600 mg, and ibuprofen 600 mg for your cough cold congestion and sore throat. Your chest x- ray and drop test were both negative. Assessment is consistent with an upper respiratory infection with a viral sore throat. Other medications you can take to the symptoms are Flonase use according to the box instructions and Chloraseptic [place] for your sore throat. Also gargling with salt and soda solution will help with your sore throat and cough. Salt and soda solution 1 quart of water 1 tablespoon of salt 1 teaspoon of baking soda Mixed 3 ingredients together and boil for 1 minute Placed in a covered quart jar Use 1/2 ounce of cold solution to gargle 3 times a day SMOKING: If you smoke, you should stop smoking. The tar and chemicals in cigarette smoke are harmful. Smoking has been shown to cause: emphysema chronic bronchitis lung cancer mouth and throat cancer stomach and pancreas cancer premature aging defects In addition, smoking increases ear and lung infections in children of smokers. FOLLOW-UP CARE: If you have been referred to a physician for follow-up care, call the physician s office for an appointment as you were instructed or within the next two days. If you experience worsening or a significant change in your symptoms, notify the physician immediately or return to the Emergency Department at any time for re-evaluation. Forms: Smoking Cessation Education
== END 2018-01-26 21:25 | disposition home or self-care (01) ==
LOC: ER 20:01
DX: J06.9 Acute upper respiratory infection, unspecified (principal); F17.210 Nicotine dependence, cigarettes, uncomplicated
CPT/HCPCS: 71046; 87070; 87880; 99283; 99406

== ENCOUNTER 2018-06-10 16:19 | Emergency (ER) | payer SELFPAY ==
[2018-06-10 16:28] VITALS: BP 118/88
== END 2018-06-10 19:55 | disposition left against medical advice (07) ==
LOC: ER 16:19
DX: Z53.21 Procedure and treatment not carried out due to patient leaving prior to being seen by health care provider (principal); R06.9 Unspecified abnormalities of breathing

== ENCOUNTER 2020-01-03 17:11 | Inpatient (IN) | payer SELFPAY ==
[2020-01-03] MEDS ORDERED: ACETAMINOPHEN 325 MG TABLET PO ONE (17:38)
--- NOTE | 2020-01-03 17:38 | ER Document Report ---
ED Medical Screen (RME) - General Chief Complaint: Fever Stated Complaint: ABDOMINAL PAIN,FEVER,NAUSEA Time Seen by Provider: 01/03/20 17:29 Mode of Arrival: Wheelchair Information source: Patient Notes: 39-year-old female presents to ED for complaint of abdominal pain for the last 2 days. She states it is been getting worse. She states she has had nausea vomiting last time she vomited was yesterday. She states she had a temperature of 102.7 yesterday. She states she has not had any Tylenol or Motrin since day before yesterday. She is afebrile at this time. She states she does feel cold. Patient is alert oriented respirations regular nonlabored speaking in full sentences. I have greeted and performed a rapid initial assessment of this patient. A comprehensive ED assessment and evaluation of the patient, analysis of test results and completion of medical decision making process will be conducted by an additional ED providers. TRAVEL OUTSIDE OF THE [place] IN LAST 30 DAYS: No - Related Data Allergies/Adverse Reactions: Sulfa (Sulfonamide Antibiotics) Allergy (Severe, Verified 02/15/17 20:59) hives,rash tramadol HCl [From Ultram] Allergy (Intermediate, Verified 02/15/17 20:59) Hives etodolac [From [facility]] Allergy (Verified 02/15/17 20:59) prednisone [Prednisone] Allergy (Verified 02/15/17 20:59) Past Medical History - Past Medical History Cardiac Medical History: Denies: Hx Coronary Artery Disease, Hx Heart Attack Comment Only: Hx Hypertension - low Pulmonary Medical History: Denies: Hx Asthma, Hx Bronchitis, Hx COPD, Hx Pneumonia Neurological Medical History: Reports: Hx Migraine. Denies: Hx Cerebrovascular Accident, Hx Seizures Renal/ Medical History: Reports: Hx Ovarian Cysts. Denies: Hx Peritoneal Dialysis Musculoskeltal Medical History: Denies Hx Arthritis, Reports Hx Musculoskeletal Deformity, Reports Hx Musculoskeletal Trauma Skin Medical History: Reports Hx Cellulitis Psychiatric Medical History: Reports: Hx Depression, Hx Post Traumatic Stress Disorder Past Surgical History: Reports: Hx Appendectomy, Hx Orthopedic Surgery - spinal fusion disc, right wrist - Immunizations Immunizations up to date: Yes Hx Diphtheria, Pertussis, Tetanus Vaccination: No Physical Exam - Vital signs Vitals: Temp Pulse Resp BP Pulse Ox 97.9 F 104 H 20 112/72 100 01/03/20 17:34 01/03/20 17:34 01/03/20 17:34 01/03/20 17:34 01/03/20 17:34 Course - Vital Signs Vital signs: Temp Pulse Resp BP Pulse Ox 97.9 F 104 H 20 112/72 100 01/03/20 17:34 01/03/20 17:34 01/03/20 17:34 01/03/20 17:34 01/03/20 17:34
[2020-01-03] MEDS ORDERED: MORPHINE SULFATE 10 MG/ML INJ IV ONE ×2 (18:35→21:53)
[2020-01-03] MEDS ORDERED: NORMAL SALINE 1000 ML 1,000 ML IV ONE (18:35)
--- NOTE | 2020-01-03 18:37 | ER Document Report ---
ED GI/ - General Mode of Arrival: Wheelchair TRAVEL OUTSIDE OF THE [place] IN LAST 30 DAYS: No <RYLEE CHOPRA - Last Filed: 01/03/20 19:47> <ZECHARIAHPAUL Thao - Last Filed: 01/03/20 22:06> - General Chief Complaint: Abdominal Pain Stated Complaint: ABDOMINAL PAIN,FEVER,NAUSEA Time Seen by Provider: 01/03/20 17:29 Notes: HPI: Patient is a 39-year-old female that states yesterday she started to have some right lower quadrant and suprapubic abdominal pain with a fever of 102.7. Vomiting x2. No diarrhea, dysuria, vaginal discharge. No missed menstrual periods. No history of appendicitis previously. No history of ovarian abscess cyst previously. Patient states that the pain is constant. To mild radiation to the back. Worse with movement. Cough, shortness of breath, runny nose, chest pain, or congestion ROS: See HPI All other review of systems reviewed and otherwise negative Reviewed vital signs and nursing note as charted by RN. PHYSICAL EXAM: CONSTITUTIONAL: Alert and oriented and responds appropriately to questions. Patient appears to be in discomfort HEAD: Normocephalic; atraumatic EYES: Sclerae non-icteric ENT: Normal nose; no rhinorrhea; moist mucous membranes; pharynx without lesions noted NECK: Supple without meningismus; non-tender; no cervical lymphadenopathy, no masses CARD: Regular rate and rhythm; no murmurs; symmetric distal pulses RESP: Normal chest excursion without splinting or tachypnea; breath sounds clear and equal bilaterally ABD/GI: Normal bowel sounds; non-distended; soft, some tenderness to palpation of the right lower quadrant suprapubic region without palpable masses, rebound or guarding BACK: The back appears normal and is non-tender to palpation EXT: Normal ROM in all joints; non-tender to palpation; no edema SKIN: No acute lesions noted NEURO: CN 2-12 intact; 5/5 bilateral upper and lower extremity strength with sensation intact to light touch PSYCH: The patient's mood and manner are appropriate. Grooming and personal hygiene are appropriate. (RYLEE CHOPRA) - Related Data Allergies/Adverse Reactions: Sulfa (Sulfonamide Antibiotics) Allergy (Severe, Verified 02/15/17 20:59) hives,rash tramadol HCl [From [facility]] Allergy (Intermediate, Verified 02/15/17 20:59) Hives etodolac [From [facility]] Allergy (Verified 02/15/17 20:59) prednisone [Prednisone] Allergy (Verified 02/15/17 20:59) Past Medical History - General Information source: Patient - Social History Smoking Status: Current Every Day Smoker Frequency of alcohol use: None Drug Abuse: None Family History: Arthritis, DM, Hypertension, Malignancy - Past Medical History Cardiac Medical History: Denies: Hx Coronary Artery Disease, Hx Heart Attack Comment Only: Hx Hypertension - low Pulmonary Medical History: Denies: Hx Asthma, Hx Bronchitis, Hx COPD, Hx Pneumonia Neurological Medical History: Reports: Hx Migraine. Denies: Hx Cerebrovascular Accident, Hx Seizures Renal/ Medical History: Reports: Hx Ovarian Cysts. Denies: Hx Peritoneal Dialysis Musculoskeletal Medical History: Denies Hx Arthritis, Reports Hx Musculoskeletal Deformity, Reports Hx Musculoskeletal Trauma Skin Medical History: Reports Hx Cellulitis Psychiatric Medical History: Reports: Hx Depression, Hx Post Traumatic Stress Disorder Past Surgical History: Reports: Hx Appendectomy, Hx Orthopedic Surgery - spinal fusion disc, right wrist - Immunizations Immunizations up to date: Yes Hx Diphtheria, Pertussis, Tetanus Vaccination: No <RYLEE CHOPRA - Last Filed: 01/03/20 19:47> Physical Exam - Vital signs Vitals: Temp Pulse Resp BP Pulse Ox 97.9 F 104 H 20 112/72 100 01/03/20 17:34 01/03/20 17:34 01/03/20 17:34 01/03/20 17:34 01/03/20 17:34 Course - Laboratory Result Diagrams: 01/03/20 19:05 01/03/20 19:05 <RYLEE CHOPRA - Last Filed: 01/03/20 19:47> - Laboratory Result Diagrams: 01/03/20 19:05 01/03/20 19:05 - Diagnostic Test Radiology reviewed: Image reviewed, Reports reviewed <PAUL APPLE - Last Filed: 01/03/20 22:06> - Re-evaluation Re-evalutation: 01/03/20 18:37 Given the history and physical examination, with some tenderness to the right lower quadrant, with a temperature supposedly 102.7 yesterday, no antipyretics today with vital signs as recorded, we will initially obtain a urine analysis, basic labs, liver panel and lipase, and reassess. I have added a CT scan of the abdomen and pelvis to evaluate for the possibility of acute intra-abdominal pathology/appendix. Given that the patient had a fever supposedly of 102.7 yesterday, I do believe torsion to be less likely than infection. 01/03/20 19:47 Urine analysis as recorded. Pending CT scan of the abdomen and pelvis. Patient's pain is improved. We have provided fluids, antibiotics, and replete the potassium. Patient signed out to the oncoming physician. (RYLEE CHOPRA) 01/03/20 22:04 CT scan notes were discussed with the patient. I have explained to her that she would need to be admitted to the hospital for further treatment. She required another dose of morphine for pain and CT revealed bilateral pyelonephritis. Discussed patient with hospitalist, Dr. Mccormick, he will see patient for further evaluation and treatment. (PAUL APPLE) - Vital Signs Vital signs: Temp Pulse Resp BP Pulse Ox 98.7 F 73 16 98/58 L 99 01/03/20 21:16 01/03/20 21:16 01/03/20 21:16 01/03/20 21:16 01/03/20 21:16 - Laboratory Laboratory results interpreted by me: 01/03/20 01/03/20 01/03/20 18:15 19:05 19:05 WBC 15.7 H MCHC 36.1 H Seg Neuts % (Manual) 84 H Lymphocytes % (Manual) 12 L Abs Neuts (Manual) 13.2 H Sodium 132.5 L Potassium 3.0 L* Chloride 94 L BUN 4 L Glucose 116 H Direct Bilirubin 0.6 H AST 39 H Albumin 3.4 L Lipase 21.5 L Urine Protein 100 H Urine Ketones 20 H Urine Blood SMALL H Urine Nitrite POSITIVE H Urine Urobilinogen 4.0 H Ur Leukocyte Esterase LARGE H - Diagnostic Test Radiology results interpreted by me: 01/03/20 22:02 CT abdomen and pelvis with IV contrast:stranding around the kidneys bilaterally, findings compatible with polynephritis, no abscess. (PAUL APPLE) Critical Care Note - Critical Care Note Total time excluding time spent on procedures (mins): 60 - Critical care time spent obtaining history from patient or surrogate, discussions with consultants, development of treatment plan with patient or surrogate, evaluation of patient's response to treatment, examination of patient, ordering and performing treatments and interventions, ordering and review of laboratory studies, re- evaluation of patient's condition, ordering and review of radiographic studies and review of old charts <PAUL APPLE - Last Filed: 01/03/20 22:06> Discharge <RYLEE CHOPRA - Last Filed: 01/03/20 19:47> - Discharge Admitting Provider: Jace (Hospitalist) Unit Admitted: Medical Floor <PAUL APPLE - Last Filed: 01/03/20 22:06> - Discharge Clinical Impression: Pyelonephritis, Flank pain Condition: Good Disposition: ADMITTED INPATIENT
[2020-01-03 19:01] LABS: APPEARANCE,URINE CLOUDY; BILIRUBIN,URINE NEGATIVE (NEGATIVE); COLOR,URINE YELLOW; GLUCOSE, URINE NEGATIVE (NEGATIVE); KETONES,URINE 20 mg/dL (NEGATIVE); LEUKOCYTE ESTERASE,URINE LARGE (NEGATIVE); NITRITE,URINE POSITIVE (NEGATIVE); PROTEIN,URINE 100 mg/dL (NEGATIVE); URINE SPECIFIC GRAVITY 1.009
[2020-01-03] MEDS ORDERED: CEFTRIAXONE 1 GM/D5W RTU 1 GM/50 ML RTUPB IV ONE (19:13)
[2020-01-03 19:36] LABS: ALBUMIN 3.4 g/dL (3.5-5.0); ALKALINE PHOSPHATASE 123 U/L (38-126); ANION GAP 11 (5-19); ASPARTATE AMINO TRANSFERASE 39 U/L (14-36); BILIRUBIN,DIRECT 0.6 mg/dL (0.0-0.4); BILIRUBIN,TOTAL 1.1 mg/dL (0.2-1.3); BLOOD UREA NITROGEN 4 mg/dL (7-20); CALCIUM 8.5 mg/dL (8.4-10.2); CARBON DIOXIDE 28 mmol/L (22-30); CHLORIDE 94 mmol/L (98-107); GLUCOSE 116 mg/dL (75-110); TOTAL PROTEIN 6.5 g/dL (6.3-8.2)
[2020-01-03] MEDS ORDERED: POTASSI CL 20 MEQ/50 ML RIDER 20 MEQ/50 ML RTUPB IV ONE (19:43)
[2020-01-03 19:49] LABS: HEMOGLOBIN 14.1 g/dL (12.0-15.5); MEAN CORPUSCULAR HEMOGLOBIN 31.3 pg (27.0-33.4); MEAN CORPUSCULAR HGB CONC 36.1 g/dL (32.0-36.0); MEAN CORPUSCULAR VOLUME 87 fl (80-97); PLATELET COUNT 200 10^3/uL (150-450); WHITE BLOOD COUNT 15.7 10^3/uL (4.0-10.5)
[2020-01-03 19:53] LABS: ABSOLUTE LYMPHOCYTES# (MANUAL) 1.9 10^3/uL (0.5-4.7); ABSOLUTE MONOCYTES # (MANUAL) 0.6 10^3/uL (0.1-1.4); BASOPHILS % (MANUAL) 0 % (0-2); EOSINOPHILS % (MANUAL) 0 % (0-6); LYMPHOCYTES % (MANUAL) 12 % (13-45); MONOCYTES % (MANUAL) 4 % (3-13); SEGMENTED NEUTROPHILS % (MAN) 84 % (42-78); TOTAL CELLS COUNTED 100
[2020-01-03 19:54] LABS: PLATELET COMMENT ADEQUATE; RBC MORPHOLOGY COMMENT NORMO-CYTIC/CHROMIC
--- NOTE | 2020-01-03 20:34 | RADIOLOGY REPORT (SQ) ---
EXAM DESCRIPTION: CT ABDOMEN PELVIS WITH IV CONTRAST COMPLETED DATE/TME: 01/03/2020 18:34 CLINICAL HISTORY: 39 years, Female, 36; fever and RLQ pain COMPARISON: May 24, 2014 TECHNIQUE: Postcontrast images of the abdomen and pelvis were obtained with 63 mL Omnipaque 350 intravenously. Images stored on PACS. All CT scanners at this facility use dose modulation, iterative reconstruction, and/or weight based dosing when appropriate to reduce radiation dose to as low as reasonably achievable (ALARA). [facility]: Dose Right [facility]: CareDose [facility]: Dose Right [facility]: Teradose 4D [facility]: [employer] LIMITATIONS: None. FINDINGS: The visualized lung bases are clear. The heart size is normal. Incidental cardiovascular calcifications are noted. Bilateral striated nephrograms are identified. There is also right perinephric fat stranding. There is no renal or perinephric mass or abnormal collection identified. There is no hydronephrosis. Right retroperitoneal surgical clips are again noted as before. There is a small amount of free pelvic fluid. The liver, spleen, adrenal glands, pancreas, gallbladder are within normal limits. No evidence of pelvic mass. There is no abnormal bowel dilation. Patient is reportedly status post appendectomy. Postoperative changes are again noted at the lumbosacral junction. No acute or suspicious bony abnormality is seen. IMPRESSION: Abnormal bilateral nephrograms, worse on the right. There is also right perinephric stranding. Bilateral pyelonephritis, right greater than left, is favored. Clinical correlation is recommended. TECHNICAL DOCUMENTATION: Quality ID # 436: Final reports with documentation of one or more dose reduction techniques (e.g., Automated exposure control, adjustment of the mA and/or kV according to patient size, use of iterative reconstruction technique) copyright 2011 [employer]- All Rights Reserved
[2020-01-04] MEDS ORDERED: LORAZEPAM INJ 2 MG/1 ML VIAL IV PRN (00:42)
[2020-01-04] MEDS ORDERED: ACETAMINOPHEN 325 MG TABLET PO PRN (00:42)
[2020-01-04] MEDS ORDERED: MELATONIN 5 MG TABLET PO PRN (00:42)
[2020-01-04] MEDS ORDERED: ACETAMINOPHEN 650 MG SUPP.RECT PR PRN (00:42)
[2020-01-04] MEDS ORDERED: PROMETHAZINE HCL INJ 25 MG/1 ML VIAL IV PRN (00:42)
[2020-01-04] MEDS ORDERED: MORPHINE SULFATE 10 MG/ML INJ IV PRN ×7 (00:42→01:44)
[2020-01-04] MEDS ORDERED: NICOTINE 21 MG/24 HR PATCH.TD24 TD PRN (00:42)
[2020-01-04] MEDS ORDERED: GUAIFENESIN SYRP 200 MG/10 ML UDC PO PRN (00:42)
[2020-01-04] MEDS ORDERED: MAG HYDROX/AL HYDROX/SIMETH SUSP 30 ML UDCUP PO PRN (00:44)
[2020-01-04] MEDS ORDERED: LEVALBUTEROL HCL NEB 0.63 MG/3 ML AMPUL NEB PRN (00:44)
[2020-01-04] MEDS ORDERED: MAGNESIUM HYDROXIDE SUSP 30 ML UDCUP PO PRN (00:44)
[2020-01-04] MEDS: POTASSI CL 20 MEQ/50 ML RIDER 20 MEQ/50 ML RTUPB IV SCH ×2 (01:05→03:18)
[2020-01-04] MEDS: DEXTROSE 5%-LACTATED RINGERS 1,000 ML IV PRN ×2 (01:05→07:47)
--- NOTE | 2020-01-04 01:45 | PDOC H&P ---
History of Present Illness Admission Date/PCP: 01/03/20 22:21 No local PCP Patient complains of: Abdominal pain History of Present Illness: SIRISHA MULLEN is a 39 year old female who presents the emergency room with a one-day history of abdominal pain. She admits the sudden onset of constant nonradiating severe colicky pain in her right flank area extending from the suprapubic region through the right lower quadrant and around to the back in the area of the costovertebral angle. The pain is worsened by activity and movements of the torso. The pain has been accompanied by a fever (102.7 F) with chills and has been associated with nausea and vomiting (2 episodes of emesis). She denies other associated or accompanying signs and symptoms. She admits prior similar symptoms with urinary tract infections. She has not identified any additional aggravating or ameliorating factors for her pain. In the emergency room she was found to have pyuria and CT scan of the abdomen and pelvis revealed bilateral pyelonephritis with inflammatory stranding. Patient was subsequently admitted to the hospital for further evaluation and treatment after initiation of antibiotic therapy in the ER. Past Medical History Cardiac Medical History: Denies: Coronary Artery Disease, Myocardial Infarction, Hyperlipidema, Hypertension Pulmonary Medical History: Denies: Asthma, Bronchitis, Chronic Obstructive Pulmonary Disease (COPD), Pneumonia EENT Medical History: Denies: Cataracts, Ears - Hearing aids Neurological Medical History: Reports: Migraine Denies: Hemorrhagic CVA, Ischemic CVA, Seizures Endocrine Medical History: Denies: Diabetes Mellitus Type 1, Diabetes Mellitus Type 2, Hyperthyroidism, Hypothyroidism Renal/ Medical History: Reports: Other - Frequent urinary tract infections Denies: Chronic Kidney Disease, Nephrolithiasis Malignancy Medical History: Reports: None GI Medical History: Reports: Other - Hemorrhoids Denies: Cirrhosis, Hepatitis, Peptic Ulcer Disease Musculoskeltal Medical History: Reports: Other - Chronic back pain Denies: Arthritis, Fibromyalgia Skin Medical History: Denies: Eczema, Psoriasis Psychiatric Medical History: Reports: Depression, Post Traumatic Stress Disorder, Tobacco Dependency Denies: Alcohol Dependency, Substance Abuse Traumatic Medical History: Reports: None Hematology: Denies: Anemia, Bleeding Tendencies Infectious Medical History: Reports: None Past Surgical History Past Surgical History: Reports: Appendectomy, Orthopedic Surgery - spinal fusion disc, right wrist, Other - Hemorrhoidectomy Social History Information Source: Patient Lives with: Alone Smoking Status: Current Every Day Smoker Electronic Cigarette use?: No Frequency of Alcohol Use: None Hx Recreational Drug Use: No Drugs: None Hx Prescription Drug Abuse: No - Advance Directive Resuscitation Status: Full Code Surrogate healthcare decision maker:: Jose Nguyen Family History Family History: Arthritis, DM, Hypertension, Malignancy Parental Family History Reviewed: Yes Children Family History Reviewed: No Sibling(s) Family History Reviewed.: Yes Medication/Allergy Home Medications: Ciprofloxacin HCl [Cipro 500 mg Tablet] 500 mg PO BID #20 tablet 06/12/15 Oxycodone HCl 5 mg PO Q6 #14 tablet 06/12/15 Oxycodone HCl [Oxycodone HCl 10 MG Tablet] 10 mg PO QID 06/12/15 Phenazopyridine HCl [Pyridium 100 Mg Tablet] 100 mg PO TID #14 tablet 06/12/15 Nitrofurantoin/Nitrofuran Mac [Macrobid 100 mg Capsule] 100 mg PO BID #20 capsule 06/19/15 Oxycodone HCl/Acetaminophen [Percocet 5-325 mg Tablet] 1 - 2 tab PO ASDIR PRN #15 tablet 06/19/15 Phenazopyridine HCl [Pyridium 200 mg Tablet] 200 mg PO TID #15 tablet 06/19/15 Phenazopyridine HCl [Pyridium 100 Mg Tablet] 100 mg PO TID #14 tablet 06/23/15 Doxycycline Hyclate [Vibramycin 100 mg Tablet] 100 mg PO BID #20 tablet 06/24/16 Fluconazole [Diflucan] 150 mg PO ONCE PRN #1 tablet 06/24/16 Permethrin [Elimite] 60 gm TP ONCE #60 gm 06/24/16 Promethazine HCl [Phenergan 25 mg Tablet] 25 - 50 mg PO Q6HP PRN #12 tablet 06/24/16 Amoxicillin 1 tab PO TID #30 tab 11/18/16 Ciprofloxacin HCl [Cipro 500 mg Tablet] 500 mg PO BID #20 tablet 02/04/17 Metoclopramide HCl [Reglan 10 mg Tablet] 1 - 2 tab PO ASDIR PRN #25 tablet 02/04/17 Albuterol Sulfate [Albuterol Sulfate 2.5mg/3 mL] 1 vial IH Q4 PRN #30 vial 02/16/17 Azithromycin [Zithromax 250 mg Tablet] 250 mg PO ASDIR PRN #6 tablet 02/16/17 Penicillin V Potassium [Penicillin Vk 500 mg Tablet] 500 mg PO BID #20 tablet 05/25/17 Prochlorperazine Maleate [Compazine 10 mg Tablet] 10 mg PO ASDIR PRN #10 tablet 05/25/17 Allergies/Adverse Reactions: Sulfa (Sulfonamide Antibiotics) Allergy (Severe, Verified 02/15/17 20:59) hives,rash tramadol HCl [From Ultram] Allergy (Intermediate, Verified 02/15/17 20:59) Hives etodolac [From [facility]] Allergy (Verified 02/15/17 20:59) prednisone [Prednisone] Allergy (Verified 02/15/17 20:59) Review of Systems Constitutional: PRESENT: as per HPI, chills, fever(s) Eyes: ABSENT: visual disturbances, other - Eye pain Ears: ABSENT: hearing changes, other - Ear pain Nose, Mouth, and Throat: ABSENT: headache(s), sore throat Cardiovascular: ABSENT: chest pain, palpitations Respiratory: ABSENT: cough, dyspnea Gastrointestinal: PRESENT: as per HPI, abdominal pain, nausea, vomiting. ABSENT: constipation, diarrhea Genitourinary: ABSENT: dysuria, hematuria Musculoskeletal: PRESENT: as per HPI, back pain. ABSENT: joint swelling, muscle weakness Integumentary: ABSENT: pruritus, rash Neurological: ABSENT: confusion, convulsions, focal weakness, memory loss, syncope Psychiatric: ABSENT: anxiety, depression Endocrine: ABSENT: cold intolerance, heat intolerance Hematologic/Lymphatic: ABSENT: easy bleeding, easy bruising Allergic/Immunologic: ABSENT: seasonal rhinorrhea Physical Exam Vital Signs: Temp Pulse Resp BP Pulse Ox 98.7 F 73 16 98/58 L 99 01/03/20 21:16 01/03/20 21:16 01/03/20 21:16 01/03/20 21:16 01/03/20 21:16 Intake & Output 01/01/20 01/02/20 01/03/20 23:59 23:59 23:59 Intake Total 1050 Balance 1050 Weight 55.5 kg General appearance: PRESENT: no acute distress, cooperative Head exam: PRESENT: atraumatic, normocephalic Eye exam: PRESENT: conjunctiva pink. ABSENT: conjunctival injection, scleral icterus Ear exam: PRESENT: normal external ear exam. ABSENT: bleeding, drainage Mouth exam: PRESENT: dry mucosa, neck supple Neck exam: ABSENT: thyromegaly, tracheal deviation Respiratory exam: PRESENT: clear to auscultation susan, symmetrical, unlabored Cardiovascular exam: PRESENT: RRR. ABSENT: clicks, gallop, rubs Pulses: PRESENT: normal radial pulses, normal dorsalis pedis pul Vascular exam: PRESENT: normal capillary refill. ABSENT: pallor GI/Abdominal exam: PRESENT: normal bowel sounds, soft, tenderness - Moderate right flank tenderness on palpation with bilateral CVA tenderness on percussion. Rectal exam: PRESENT: deferred Extremities exam: ABSENT: joint swelling, pedal edema Musculoskeletal exam: ABSENT: deformity, dislocation Neurological exam: PRESENT: alert, oriented to person, oriented to place, orie nted to time, oriented to situation, CN II-XII grossly intact. ABSENT: motor sensory deficit Psychiatric exam: PRESENT: appropriate affect, normal mood Skin exam: PRESENT: dry, intact, warm. ABSENT: jaundice, rash, urticaria Results Laboratory Results: 01/03/20 19:05 01/03/20 19:05 01/03/20 01/03/20 01/03/20 18:15 19:05 19:05 WBC 15.7 H RBC 4.50 Hgb 14.1 Hct 39.0 MCV 87 MCH 31.3 MCHC 36.1 H RDW 12.0 Plt Count 200 Seg Neutrophils % Not Reportable Sodium 132.5 L Potassium 3.0 L* Chloride 94 L Carbon Dioxide 28 Anion Gap 11 BUN 4 L Creatinine 0.67 Est GFR ( Amer) > 60 Glucose 116 H Calcium 8.5 Magnesium Total Bilirubin 1.1 AST 39 H Alkaline Phosphatase 123 Total Protein 6.5 Albumin 3.4 L Lipase 21.5 L Serum HCG, Qual Urine Color YELLOW Urine Appearance CLOUDY Urine pH 7.0 Ur Specific [place] 1.009 Urine Protein 100 H Urine Glucose (UA) NEGATIVE Urine Ketones 20 H Urine Blood SMALL H Urine Nitrite POSITIVE H Ur Leukocyte Esterase LARGE H Urine WBC (Auto) 117 Urine RBC (Auto) 9 01/03/20 01/03/20 19:05 19:05 WBC RBC Hgb Hct MCV MCH MCHC RDW Plt Count Seg Neutrophils % Sodium Potassium Chloride Carbon Dioxide Anion Gap BUN Creatinine Est GFR ( Amer) Glucose Calcium Magnesium 2.0 Total Bilirubin AST Alkaline Phosphatase Total Protein Albumin Lipase Serum HCG, Qual NEGATIVE Urine Color Urine Appearance Urine pH Ur Specific [place] Urine Protein Urine Glucose (UA) Urine Ketones Urine Blood Urine Nitrite Ur Leukocyte Esterase Urine WBC (Auto) Urine RBC (Auto) Impressions: Abdomen/Pelvis CT 01/03/20 18:34 IMPRESSION: Abnormal bilateral nephrograms, worse on the right. There is also right perinephric stranding. Bilateral pyelonephritis, right greater than left, is favored. Clinical correlation is recommended. TECHNICAL DOCUMENTATION: Quality ID # 436: Final reports with documentation of one or more dose reduction techniques (e.g., Automated exposure control, adjustment of the mA and/or kV according to patient size, use of iterative reconstruction technique) copyright 2011 [employer]- All Rights Reserved Assessment and Plan - Diagnosis (1) Acute pyelonephritis Is this a current diagnosis for this admission?: Yes (2) Nausea and vomiting Qualifiers: Vomiting type: unspecified Vomiting Intractability: non-intractable Qualified Code(s): R11.2 - Nausea with vomiting, unspecified Is this a current diagnosis for this admission?: Yes (3) Flank pain Is this a current diagnosis for this admission?: Yes (4) Fever with chills Is this a current diagnosis for this admission?: Yes (5) Tobacco use disorder, continuous Is this a current diagnosis for this admission?: Yes - Plan Summary Summary: Patient will be admitted medical service where she received routine supportive and symptomatic cares. She will be treated with IV antibiotics utilizing cefepime 2 g every 12 hours. She will receive morphine sulfate 2 to 4 mg IV every 2 hours as needed for pain. She received Ativan 1 mg IV every 4 hours as needed for anxiety or restlessness. She will receive a regular diet. She received IV fluids using D5 LR at 167 mL/h initially. Smoking cessation is advised and counseled briefly at the bedside. Nicotine replacement patch is available for the patient's use, if desired. Patient's usual home medications will be resumed, as appropriate, when her medication list has been verified reconciled. - Time Time Spent with patient: Less than 15 minutes Smoking Cessation Education: 3 to 10 minutes Anticipated Discharge Disposition: Home, Self Care Anticipated Discharge Timeframe: within 72 hours - Inpatient Certification Based on my medical assessment, after consideration of the patient's comorb idities, presenting symptoms, or acuity I expect that the services needed warrant INPATIENT care.: Yes I certify that my determination is in accordance with my understanding of Medicare's requirements for reasonable and necessary INPATIENT services [42 CFR 412.3e].: Yes Medical Necessity: Need Close Monitoring Due to Risk of Patient Decompensation, Need For IV Fluids, Need for IV Antibiotics
[2020-01-04] MEDS: MORPHINE SULFATE 10 MG/ML INJ IV PRN ×3 (03:03→07:46)
[2020-01-04] MEDS: HEPARIN SOD (PORCINE) 5,000 UNIT/ML 1 ML VIAL SUBCUT SCH ×3 (05:12→21:13)
[2020-01-04] MEDS ORDERED: HYDROMORPHONE HCL INJ/PF 2 MG/ML AMPULE IV PRN ×2 (08:14→08:21)
[2020-01-04] MEDS ORDERED: CEFEPIME 2 GM/D5W RTU 2 GM/50 ML RTUPB IV SCH (10:00)
[2020-01-04] MEDS ORDERED: HYDROMORPHONE HCL 2 MG TABLET ONE (11:11)
[2020-01-04] MEDS: CEFEPIME HCL 2 GM in DEXTROSE 5%-WATER 50 ML IV SCH ×2 (11:23→21:09)
[2020-01-04] MEDS: DOCUSATE SODIUM 100 MG CAPSULE PO SCH ×2 (11:24→18:48)
[2020-01-04] MEDS: FAMOTIDINE 20 MG TABLET PO SCH ×2 (11:24→21:11)
[2020-01-04] MEDS: HYDROCODONE/ACETAMINOPHEN 10-325 MG TABLET PO PRN ×2 (16:57→21:11)
[2020-01-04] MEDS ORDERED: NORMAL SALINE 500 ML IV ONE ×2 (17:00→18:00)
--- NOTE | 2020-01-04 22:08 | PDOC PROGRESS REPORT ---
Subjective Progress Note for:: 01/04/20 Subjective:: SIRISHA MULLEN is a 39 year old female who presents the emergency room with a one-day history of abdominal pain. She admits the sudden onset of constant nonradiating severe colicky pain in her right flank area extending from the suprapubic region through the right lower quadrant and around to the back in the area of the costovertebral angle. The pain is worsened by activity and movements of the torso. The pain has been accompanied by a fever (102.7 F) with chills and has been associated with nausea and vomiting (2 episodes of emesis). She denies other associated or accompanying signs and symptoms. She admits prior similar symptoms with urinary tract infections. She has not identified any additional aggravating or ameliorating factors for her pain. In the emergency room she was found to have pyuria and CT scan of the abdomen and pelvis revealed bilateral pyelonephritis with inflammatory stranding. Patient was subsequently admitted to the hospital for further evaluation and treatment after initiation of antibiotic therapy in the ER. D2 hospital stay. She was seen and examined at bedside. She was still in pain, complains of poor appetite. Denies any hematuria, nausea/vomiting. She is tearful and sad because her cannot stay by her side to take care of her. She has on and off episodes of hypotension which responded to IV fluids. I nitial urine culture results showing gram-negative rods. Last fever at 5 AM. She is on cefepime. Reason For Visit: FLANK PAIN // PYELONEPHRITIS Physical Exam Vital Signs: Temp Pulse Resp BP Pulse Ox 99.2 F 73 18 96/58 L 100 01/04/20 20:42 01/04/20 20:42 01/04/20 20:42 01/04/20 20:42 01/04/20 20:42 Intake & Output 01/03/20 01/04/20 01/05/20 06:59 06:59 06:59 Intake Total 1200 2450 Balance 1200 2450 Weight 56.1 kg General appearance: PRESENT: no acute distress, cooperative Head exam: PRESENT: normocephalic Eye exam: PRESENT: EOMI Mouth exam: PRESENT: moist Neck exam: PRESENT: full ROM. ABSENT: JVD, meningismus Respiratory exam: PRESENT: clear to auscultation susan, symmetrical, unlabored. ABSENT: rales Cardiovascular exam: PRESENT: RRR, +S1, +S2 Pulses: PRESENT: +2 pedal pulses bilateral GI/Abdominal exam: PRESENT: normal bowel sounds, soft, tenderness - Right CVA tenderness. ABSENT: rebound Gentrourinary exam: ABSENT: urethral discharge Extremities exam: PRESENT: full ROM Musculoskeletal exam: PRESENT: full ROM Neurological exam: PRESENT: alert, awake, oriented to person, oriented to place, oriented to time Psychiatric exam: PRESENT: anxious Skin exam: PRESENT: normal color Results Laboratory Results: 01/03/20 19:05 01/03/20 19:05 01/03/20 01/04/20 01/04/20 19:05 01:29 05:29 Lactic Acid 2.2 H 1.2 Magnesium 2.0 01/04/20 09:31 Lactic Acid 0.8 Magnesium Impressions: Abdomen/Pelvis CT 01/03/20 18:34 IMPRESSION: Abnormal bilateral nephrograms, worse on the right. There is also right perinephric stranding. Bilateral pyelonephritis, right greater than left, is favored. Clinical correlation is recommended. TECHNICAL DOCUMENTATION: Quality ID # 436: Final reports with documentation of one or more dose reduction techniques (e.g., Automated exposure control, adjustment of the mA and/or kV according to patient size, use of iterative reconstruction technique) copyright 2011 [employer]- All Rights Reserved Assessment and Plan - Diagnosis (1) Acute pyelonephritis Is this a current diagnosis for this admission?: Yes Plan: -Reports at least once or twice a year of UTI. Admitted now due to pyelonep hritis -No prior history of kidney stones -Has CVA tenderness -Fever of 101.2 - WBC 15.7 - UA positive nitrite large leukocyte esterase WBC 117 -CT abdomen showed abnormal bilateral nephrograms worse on the right there is also right perinephric stranding. Bilateral pyelonephritis right greater than left -Preliminary urine culture growing gram-negative rods -Continue cefepime, pending sensitivity results -Blood culture was not ordered in the ED. have ordered a blood culture but this was collected after receiving antibiotics -Dilaudid for pain -Continue IV fluids (2) Flank pain Is this a current diagnosis for this admission?: Yes Plan: -Due to bilateral pyelonephritis -Dilaudid for pain (3) Fever with chills Is this a current diagnosis for this admission?: Yes Plan: Secondary to pyelonephritis -Fever episode January 03 at around 5 PM (4) Hypotension Qualifiers: Hypotension type: hypotension due to hypovolemia Qualified Code(s): I95.89 - Other hypotension; E86.1 - Hypovolemia Is this a current diagnosis for this admission?: Yes Plan: - BP 96/58 -This is likely from hypovolemia from nausea and vomiting, less likely sepsis but still being considered given bilateral pyelonephritis, she is also a small ED and this may be her baseline blood pressure - lactic acid normal - continue fluid resusc - Plan Summary Summary: Patient will be admitted medical service where she received routine supportive and symptomatic cares. She will be treated with IV antibiotics utilizing cefepi me 2 g every 12 hours. She will receive morphine sulfate 2 to 4 mg IV every 2 hours as needed for pain. She received Ativan 1 mg IV every 4 hours as needed for anxiety or restlessness. She will receive a regular diet. She received IV fluids using D5 LR at 167 mL/h initially. Smoking cessation is advised and counseled briefly at the bedside. Nicotine replacement patch is available for the patient's use, if desired. Patient's usual home medications will be resumed, as appropriate, when her medication list has been verified reconciled. - Time Time Spent with patient: 25-34 minutes Anticipated Discharge Disposition: Home, Self Care Anticipated Discharge Timeframe: to be determined
[2020-01-04] MEDS: RINGERS SOLUTION,LACTATED 1,000 ML IV PRN (22:22)
[2020-01-05 04:57] LABS: HEMATOCRIT 36.7 % (36.0-47.0); HEMOGLOBIN 12.7 g/dL (12.0-15.5); MEAN CORPUSCULAR HEMOGLOBIN 30.7 pg (27.0-33.4); MEAN CORPUSCULAR HGB CONC 34.5 g/dL (32.0-36.0); MEAN CORPUSCULAR VOLUME 89 fl (80-97); PLATELET COUNT 182 10^3/uL (150-450); RED BLOOD COUNT 4.12 10^6/uL (3.72-5.28); RED CELL DISTRIBUTION WIDTH 12.7 % (11.5-14.0); WHITE BLOOD COUNT 10.8 10^3/uL (4.0-10.5)
[2020-01-05 05:25] LABS: ANION GAP 6 (5-19); BLOOD UREA NITROGEN 4 mg/dL (7-20); CARBON DIOXIDE 29 mmol/L (22-30); CHLORIDE 102 mmol/L (98-107); GLUCOSE 102 mg/dL (75-110); POTASSIUM 3.6 mmol/L (3.6-5.0)
[2020-01-05] MEDS: RINGERS SOLUTION,LACTATED 1,000 ML IV PRN ×2 (06:03→17:11)
[2020-01-05] MEDS: HEPARIN SOD (PORCINE) 5,000 UNIT/ML 1 ML VIAL SUBCUT SCH ×3 (06:03→21:22)
[2020-01-05] MEDS: CEFEPIME HCL 2 GM in DEXTROSE 5%-WATER 50 ML IV SCH ×2 (09:26→21:23)
[2020-01-05] MEDS: FAMOTIDINE 20 MG TABLET PO SCH ×2 (09:26→21:23)
[2020-01-05] MEDS: DOCUSATE SODIUM 100 MG CAPSULE PO SCH ×2 (09:26→18:41)
[2020-01-05] MEDS: HYDROCODONE/ACETAMINOPHEN 10-325 MG TABLET PO PRN ×2 (13:21→20:07)
--- NOTE | 2020-01-05 19:04 | PDOC PROGRESS REPORT ---
Subjective Progress Note for:: 01/05/20 Subjective:: SIRISHA MULLEN is a 39 year old female who presents the emergency room with a one-day history of abdominal pain. She admits the sudden onset of constant nonradiating severe colicky pain in her right flank area extending from the suprapubic region through the right lower quadrant and around to the back in the area of the costovertebral angle. The pain is worsened by activity and movements of the torso. The pain has been accompanied by a fever (102.7 F) with chills and has been associated with nausea and vomiting (2 episodes of emesis). She denies other associated or accompanying signs and symptoms. She admits prior similar symptoms with urinary tract infections. She has not identified any additional aggravating or ameliorating factors for her pain. In the emergency room she was found to have pyuria and CT scan of the abdomen and pelvis revealed bilateral pyelonephritis with inflammatory stranding. Patient was subsequently admitted to the hospital for further evaluation and treatment after initiation of antibiotic therapy in the ER. D2 hospital stay. She was seen and examined at bedside. She was still in pain, complains of poor appetite. Denies any hematuria, nausea/vomiting. She is tearful and sad because her cannot stay by her side to take care of her. She has on and off episodes of hypotension which responded to IV fluids. I nitial urine culture results showing gram-negative rods. Last fever at 5 AM. She is on cefepime. D3 hospital stay 01/05/20. She was seen and examined at beside. She still reports feeling week and with poor appetite. Flank pain is mildly improved but still present. She has been afebrile for 24 hrs. Urine culture growing E.coli sensitive to cefepime, currently D2. Blood culture pending. the present has a depressed affect as she is very tearful even when I was just asking about her symptoms. She expressed that she is very sad that her cannot stay by her side. Reason For Visit: FLANK PAIN // PYELONEPHRITIS Physical Exam Vital Signs: Temp Pulse Resp BP Pulse Ox 98.7 F 71 18 91/55 L 100 01/05/20 12:10 01/05/20 12:10 01/05/20 12:10 01/05/20 12:10 01/05/20 12:10 Intake & Output 01/04/20 01/05/2001/05/20 06:59 06:59 06:59 Intake Total 1200 4410 1290 Balance 1200 4410 1290 Weight 56.1 kg 59.8 kg 60.4 kg General appearance: PRESENT: no acute distress Head exam: PRESENT: atraumatic, normocephalic Eye exam: PRESENT: EOMI, PERRLA Mouth exam: PRESENT: moist Neck exam: PRESENT: full ROM Respiratory exam: PRESENT: clear to auscultation susan, symmetrical, unlabored Cardiovascular exam: PRESENT: RRR, +S1, +S2 Pulses: PRESENT: +2 pedal pulses bilateral Vascular exam: PRESENT: normal capillary refill GI/Abdominal exam: PRESENT: No's sign, soft. ABSENT: rebound Gentrourinary exam: PRESENT: other - CVA tenderness right side Extremities exam: PRESENT: full ROM Musculoskeletal exam: PRESENT: full ROM Neurological exam: PRESENT: alert, awake, oriented to person, oriented to place, oriented to time Psychiatric exam: PRESENT: depressed Skin exam: PRESENT: normal color Results Laboratory Results: 01/05/20 04:46 01/05/20 04:46 01/05/20 01/05/20 01/05/20 04:46 04:46 04:46 WBC 10.8 H RBC 4.12 Hgb 12.7 Hct 36.7 MCV 89 MCH 30.7 MCHC 34.5 RDW 12.7 Plt Count 182 Sodium 137.1 Potassium 3.6 Chloride 102 Carbon Dioxide 29 Anion Gap 6 BUN 4 L Creatinine 0.73 Est GFR ( Amer) > 60 Glucose 102 Calcium 8.0 L Magnesium 1.8 TSH 3.45 01/03/20 18:15 Clean Catch Midstream Urine Culture - Final Escherichia Coli Impressions: Abdomen/Pelvis CT 01/03/20 18:34 IMPRESSION: Abnormal bilateral nephrograms, worse on the right. There is also right perinephric stranding. Bilateral pyelonephritis, right greater than left, is favored. Clinical correlation is recommended. TECHNICAL DOCUMENTATION: Quality ID # 436: Final reports with documentation of one or more dose reduction techniques (e.g., Automated exposure control, adjustment of the mA and/or kV according to patient size, use of iterative reconstruction technique) copyright 2011 [employer]- All Rights Reserved Assessment and Plan - Diagnosis (1) Acute pyelonephritis Is this a current diagnosis for this admission?: Yes Plan: -Reports at least once or twice a year of UTI. Admitted now due to pyelonephritis -No prior history of kidney stones -Has CVA tenderness -Afebrile x 24 hrs - WBC 15.7>10.8 - UA positive nitrite large leukocyte esterase WBC 117 -CT abdomen showed abnormal bilateral nephrograms worse on the right there is also right perinephric stranding. Bilateral pyelonephritis right greater than left. No hydronephrosis -Urine culture E. coli -Continue cefepime D2, can be switched to oral tomorrow -Blood culture was not ordered in the ED. have ordered a blood culture but this was collected after receiving antibiotics -Dilaudid for pain -Continue IV fluids (2) Flank pain Is this a current diagnosis for this admission?: Yes Plan: -Due to bilateral pyelonephritis -Dilaudid for pain (3) Fever with chills Is this a current diagnosis for this admission?: Yes Plan: Secondary to pyelonephritis -Fever episode January 03 at around 5 PM (4) Hypotension Qualifiers: Hypotension type: hypotension due to hypovolemia Qualified Code(s): I95.89 - Other hypotension; E86.1 - Hypovolemia Is this a current diagnosis for this admission?: Yes Plan: - BP 96/58 -This is likely from hypovolemia from nausea and vomiting, less likely sepsis but still being considered given bilateral pyelonephritis, she is also a small ED and this may be her baseline blood pressure - lactic acid normal - continue fluid resusc - Plan Summary Summary: This is a 39-year-old female who was admitted due to acute pyelonephritis. According to the patient she often has urinary tract infection at least once or twice per year, she denies any history of kidney stones. Denies any family history of recurrent kidney problems. He was initially hypotensive, WBC count of 15, lactic acid 2.2. Urine culture consistent with UTI. CT abdomen showed abnormal bilateral nephrograms worse on the right. There is also right perineph leonel stranding. Bilateral pyelonephritis right greater than left. He was started on IV fluids, and cefepime. Lactic acid trended down. Plan is to keep keep her on cefepime and IV fluids today and switch her to oral antibiotics tomorrow. Possible discharge tomorrow. - Time Time Spent with patient: 25-34 minutes Anticipated Discharge Disposition: Home, Self Care Anticipated Discharge Timeframe: within 48 hours
[2020-01-06] MEDS: RINGERS SOLUTION,LACTATED 1,000 ML IV PRN ×2 (03:09→13:26)
[2020-01-06] MEDS: HEPARIN SOD (PORCINE) 5,000 UNIT/ML 1 ML VIAL SUBCUT SCH ×3 (05:23→22:48)
[2020-01-06] MEDS: DOCUSATE SODIUM 100 MG CAPSULE PO SCH ×2 (09:55→17:35)
[2020-01-06] MEDS: FAMOTIDINE 20 MG TABLET PO SCH ×2 (09:55→22:49)
[2020-01-06] MEDS: HYDROCODONE/ACETAMINOPHEN 10-325 MG TABLET PO PRN ×3 (09:56→20:48)
[2020-01-06] MEDS: CEFEPIME HCL 2 GM in DEXTROSE 5%-WATER 50 ML IV SCH (09:57)
[2020-01-06 11:10] LABS: HEMATOCRIT 33.8 % (36.0-47.0); HEMOGLOBIN 11.8 g/dL (12.0-15.5); MEAN CORPUSCULAR HEMOGLOBIN 30.8 pg (27.0-33.4); MEAN CORPUSCULAR HGB CONC 34.8 g/dL (32.0-36.0); MEAN CORPUSCULAR VOLUME 88 fl (80-97); PLATELET COUNT 218 10^3/uL (150-450); RED BLOOD COUNT 3.82 10^6/uL (3.72-5.28); RED CELL DISTRIBUTION WIDTH 12.5 % (11.5-14.0); WHITE BLOOD COUNT 7.5 10^3/uL (4.0-10.5)
[2020-01-06 11:28] LABS: ANION GAP 5 (5-19); BLOOD UREA NITROGEN 4 mg/dL (7-20); CALCIUM 8.1 mg/dL (8.4-10.2); CARBON DIOXIDE 29 mmol/L (22-30); CHLORIDE 102 mmol/L (98-107); GLUCOSE 130 mg/dL (75-110); POTASSIUM 3.8 mmol/L (3.6-5.0)
--- NOTE | 2020-01-06 13:51 | PDOC PROGRESS REPORT ---
Subjective Progress Note for:: 01/06/20 Subjective:: The patient is a 39-year-old female with a past medical history significant for migraines, frequent UTI, hemorrhoids, chronic back pain, depression, PTSD, tobacco dependency who was admitted 01/02/2020 with pyelonephritis. Patient was seen on morning rounds. She was found resting in bed, comfortably, on room air. She reports that her flank pain is somewhat decreased today. She reports return of her appetite without nausea or vomiting. She is hopeful to be discharged home in the near future. She is somewhat tearful today. T-max 100.0/24 hours, 101.2/48 hours. She denies chills, chest pain, palpitations, dyspnea, orthopnea, nausea, vomiting, and diarrhea. She has no other questions or concerns at this time. No concerns per nursing. Reason For Visit: FLANK PAIN // PYELONEPHRITIS Physical Exam Vital Signs: Temp Pulse Resp BP Pulse Ox 97.6 F 67 16 96/60 L 99 01/06/20 08:35 01/06/20 07:37 01/06/20 07:37 01/06/20 07:37 01/06/20 07:37 Intake & Output 01/05/20 01/06/20 01/07/20 06:59 06:59 06:59 Intake Total 4410 2770 1400 Balance 4410 2770 1400 Weight 59.8 kg 60.8 kg General appearance: PRESENT: no acute distress, cooperative, well-developed, well-nourished Head exam: PRESENT: atraumatic, normocephalic Eye exam: PRESENT: conjunctiva pink, EOMI, PERRLA. ABSENT: scleral icterus Mouth exam: PRESENT: moist, tongue midline Teeth exam: PRESENT: poor dentation Respiratory exam: PRESENT: clear to auscultation susan, symmetrical, unlabored. ABSENT: rales, rhonchi, wheezes Cardiovascular exam: PRESENT: RRR. ABSENT: diastolic murmur, rubs, systolic murmur Vascular exam: PRESENT: normal capillary refill GI/Abdominal exam: PRESENT: normal bowel sounds, soft. ABSENT: distended, guarding, mass, organolmegaly, rebound, tenderness Rectal exam: PRESENT: deferred Extremities exam: PRESENT: full ROM. ABSENT: calf tenderness, clubbing, pedal edema Musculoskeletal exam: PRESENT: ambulatory Neurological exam: PRESENT: alert, awake, oriented to person, oriented to place, oriented to time, oriented to situation, CN II-XII grossly intact. ABSENT: motor sensory deficit Psychiatric exam: PRESENT: other - tearful. ABSENT: homicidal ideation, suicidal ideation Skin exam: PRESENT: dry, intact, warm. ABSENT: cyanosis, rash Results Laboratory Results: 01/06/20 10:57 01/06/20 10:57 01/06/20 01/06/20 10:57 10:57 WBC 7.5 RBC 3.82 Hgb 11.8 L Hct 33.8 L MCV 88 MCH 30.8 MCHC 34.8 RDW 12.5 Plt Count 218 Sodium 136.0 L Potassium 3.8 Chloride 102 Carbon Dioxide 29 Anion Gap 5 BUN 4 L Creatinine 0.64 Est GFR ( Amer) > 60 Glucose 130 H Calcium 8.1 L Impressions: Abdomen/Pelvis CT 01/03/20 18:34 IMPRESSION: Abnormal bilateral nephrograms, worse on the right. There is also right perinephric stranding. Bilateral pyelonephritis, right greater than left, is favored. Clinical correlation is recommended. TECHNICAL DOCUMENTATION: Quality ID # [id number]: Final reports with documentation of one or more dose reduction techniques (e.g., Automated exposure control, adjustment of the mA and/or kV according to patient size, use of iterative reconstruction technique) copyright 2011 [employer]- All Rights Reserved Assessment and Plan - Diagnosis (1) Acute pyelonephritis Is this a current diagnosis for this admission?: Yes Plan: -Reports at least once or twice a year of UTI. Admitted now due to pyelonephritis -No prior history of kidney stones -Has CVA tenderness -Afebrile x 24 hrs; Tmax 101.2/48hrs - WBC 15.7-> 10.8-> 7.5 - UA positive nitrite large leukocyte esterase WBC 117 -CT abdomen showed abnormal bilateral nephrograms worse on the right there is also right perinephric stranding. Bilateral pyelonephritis right greater than left. No hydronephrosis -Urine culture E. coli Initially placed on IV cefepime; transition to p.o. Cefpodoxime 200 mg q12 h Continue gentle IVF [place] prn pain (2) Fever with chills Is this a current diagnosis for this admission?: Yes Plan: Secondary to pyelonephritis Tmax 100.0/24hrs, 101.2/48 hrs Management as above. (3) Flank pain Is this a current diagnosis for this admission?: Yes Plan: Improved -Due to bilateral pyelonephritis prn Tylenol or [place] (4) Hypotension Qualifiers: Hypotension type: hypotension due to hypovolemia Qualified Code(s): I95.89 - Other hypotension; E86.1 - Hypovolemia Is this a current diagnosis for this admission?: Yes Plan: - BP 96/60 -This is likely from hypovolemia from nausea and vomiting, less likely sepsis but still being considered given bilateral pyelonephritis, she is also a small person and this may be her baseline blood pressure - lactic acid normal - continue IVF Check orthostatic BP Fall precautions. (5) Nausea and vomiting Qualifiers: Vomiting type: unspecified Vomiting Intractability: non-intractable Qualified Code(s): R11.2 - Nausea with vomiting, unspecified Is this a current diagnosis for this admission?: Yes Plan: Resolved; now tolerating 100% of meals Secondary to #1 (6) Tobacco use disorder, continuous Is this a current diagnosis for this admission?: Yes Plan: Smoking cessation encouraged. Nicotine replacement therapies provided. - Time Time Spent with patient: 25-34 minutes Medications reviewed and adjusted accordingly: Yes Anticipated Discharge Disposition: Home, Self Care Anticipated Discharge Timeframe: within 24 hours
[2020-01-06] MEDS: CEFPODOXIME 200 MG TABLET PO SCH (22:49)
[2020-01-07] MEDS: HYDROCODONE/ACETAMINOPHEN 10-325 MG TABLET PO PRN ×2 (05:59→10:45)
[2020-01-07] MEDS: HEPARIN SOD (PORCINE) 5,000 UNIT/ML 1 ML VIAL SUBCUT SCH (06:03)
[2020-01-07 06:31] LABS: HEMATOCRIT 37.1 % (36.0-47.0); HEMOGLOBIN 12.5 g/dL (12.0-15.5); MEAN CORPUSCULAR HEMOGLOBIN 30.2 pg (27.0-33.4); MEAN CORPUSCULAR HGB CONC 33.7 g/dL (32.0-36.0); MEAN CORPUSCULAR VOLUME 90 fl (80-97); PLATELET COUNT 249 10^3/uL (150-450); RED BLOOD COUNT 4.14 10^6/uL (3.72-5.28); RED CELL DISTRIBUTION WIDTH 12.5 % (11.5-14.0); WHITE BLOOD COUNT 8.9 10^3/uL (4.0-10.5)
[2020-01-07] MEDS: DOCUSATE SODIUM 100 MG CAPSULE PO SCH (10:44)
[2020-01-07] MEDS: FAMOTIDINE 20 MG TABLET PO SCH (10:44)
[2020-01-07] MEDS: CEFPODOXIME 200 MG TABLET PO SCH (10:45)
[2020-01-07 10:49] VITALS: BP 97/65
--- NOTE | 2020-01-07 17:06 | PDOC DISCHARGE SUMMARY ---
Impression - Admit/DC Date/PCP Admission Date/Primary Care Provider: 01/03/20 22:21 Discharge Date: 01/07/20 - Discharge Diagnosis (1) Acute pyelonephritis Is this a current diagnosis for this admission?: Yes (2) Fever with chills Is this a current diagnosis for this admission?: Yes (3) Flank pain Is this a current diagnosis for this admission?: Yes (4) Hypotension Is this a current diagnosis for this admission?: Yes (5) Nausea and vomiting Is this a current diagnosis for this admission?: Yes (6) Tobacco use disorder, continuous Is this a current diagnosis for this admission?: Yes - Additional Information Resuscitation Status: Full Code Discharge Diet: Regular Discharge Activity: Activity As Tolerated, Balance Activity w/Rest Referrals: [facility] [Provider Group] - 01/20/20 11:30 am Prescriptions: Nicotine [Nicoderm 21 mg/24 Hr Transderm Patch] 1 each TD DAILYP PRN #30 patch.[email or web address] PRN Reason: Hydrocodone/Acetaminophen [Newton 10-325 mg Tablet] 1 tab PO Q4HP PRN #12 tablet PRN Reason: Cefpodoxime Proxetil [Vantin 200 mg Tablet] 200 mg PO Q12 #20 tablet Home Medications: Acetaminophen [Tylenol 325 mg Tablet] 650 mg PO Q4HP PRN tablet 01/07/20 Cefpodoxime Proxetil [Vantin 200 mg Tablet] 200 mg PO Q12 #20 tablet 01/07/20 Hydrocodone/Acetaminophen [Newton 10-325 mg Tablet] 1 tab PO Q4HP PRN #12 tablet 01/07/20 Nicotine [Nicoderm 21 mg/24 Hr Transderm Patch] 1 each TD DAILYP PRN #30 patch.[id number] 01/07/20 History of Present Illiness History of Present Illness: Per H&P by Dr. Mccormick: SIRISHA MULLEN is a 39 year old female who presents the emergency room with a one-day history of abdominal pain. She admits the sudden onset of constant nonradiating severe colicky pain in her right flank area extending from the suprapubic region through the right lower quadrant and around to the back in the area of the costovertebral angle. The pain is worsened by activity and movements of the torso. The pain has been accompanied by a fever (102.7 F) with chills and has been associated with nausea and vomiting (2 episodes of emesis). She denies other associated or accompanying signs and symptoms. She admits prior similar symptoms with urinary tract infections. She has not identified any additional aggravating or ameliorating factors for her pain. In the emergency room she was found to have pyuria and CT scan of the abdomen and pelvis revealed bilateral pyelonephritis with inflammatory stranding. Patient was subsequently admitted to the hospital for further evaluation and treatment after initiation of antibiotic therapy in the ER. Hospital Course Hospital Course: (1) Acute pyelonephritis Patient reports history of frequent UTI. Presented with fever, CVA tenderness, n/v. UA positive nitrite large leukocyte esterase Urine culture revealed E. Coli Blood cultures negative at 48 hrs -CT abdomen showed abnormal bilateral nephrograms worse on the right there is also right perinephric stranding. Bilateral pyelonephritis right greater than left. No hydronephrosis Initially placed on IV cefepime; received 4 days of therapy. Transitioned to p.o. Cefpodoxime 200 mg q12 h. Remained afebrile with resolution of leukocytosis. Antiemetics and analgesics were provided, as needed. Patient was discharged home w/ Rx for cefpodoxime and Newton. Received call from outpatient pharmacy; patient is self pay and could not afford cefpodoxime (~$300) and was requesting to fill Newton only. Pharmacist priced ceftin (~$30); authorized change to Ceftin 300mg x10 day course of therapy. Pharmacist was asked to fill Newton only if antibiotic was filled. (2) Fever with chills Resolved. Secondary to pyelonephritis Tmax 100.0/48 hrs Management as above. (3) Flank pain Improved -Due to bilateral pyelonephritis prn Tylenol or Newton (4) Hypotension She is a small person; suspect this may be her baseline blood pressure Lactic acid normal Orthostatic blood pressures were normal. Received generous IVF without noted change in BP. Ambulatory without symptoms. (5) Nausea and vomiting Resolved; now tolerating 100% of meals Secondary to #1 (6) Tobacco use disorder, continuous Smoking cessation encouraged. Nicotine replacement therapies provided. Physical Exam Vital Signs: Temp Pulse Resp BP Pulse Ox 98.2 F 64 12 97/65 L 100 01/07/20 10:48 01/07/20 10:48 01/07/20 10:48 01/07/20 10:48 01/07/20 10:48 Intake & Output 01/06/20 01/07/20 01/08/20 06:59 06:59 06:59 Intake Total 2770 2860 Balance 2770 2860 Weight 60.8 kg 61.7 kg General appearance: PRESENT: no acute distress, disheveled, thin, well- developed, well-nourished Head exam: PRESENT: atraumatic, normocephalic Eye exam: PRESENT: conjunctiva pink, EOMI, PERRLA. ABSENT: scleral icterus Mouth exam: PRESENT: moist, tongue midline Teeth exam: PRESENT: dental caries, poor dentation Respiratory exam: PRESENT: clear to auscultation susan, symmetrical, unlabored. ABSENT: rales, rhonchi, wheezes Cardiovascular exam: PRESENT: RRR, +S1, +S2. ABSENT: diastolic murmur, rubs, systolic murmur Pulses: PRESENT: normal dorsalis pedis pul Vascular exam: PRESENT: normal capillary refill GI/Abdominal exam: PRESENT: normal bowel sounds, soft, other - intermittent right flank pain; improved. ABSENT: distended, guarding, mass, organolmegaly, rebound, tenderness Rectal exam: PRESENT: deferred Extremities exam: PRESENT: full ROM. ABSENT: calf tenderness, clubbing, pedal edema Musculoskeletal exam: PRESENT: ambulatory Neurological exam: PRESENT: alert, awake, oriented to person, oriented to place, oriented to time, oriented to situation, CN II-XII grossly intact. ABSENT: motor sensory deficit Psychiatric exam: PRESENT: appropriate affect, normal mood. ABSENT: homicidal ideation, suicidal ideation Skin exam: PRESENT: dry, intact, warm. ABSENT: cyanosis, rash Results Laboratory Results: WBC 8.9 10^3/uL (4.0-10.5) 01/07/20 06:10 RBC 4.14 10^6/uL (3.72-5.28) 01/07/20 06:10 Hgb 12.5 g/dL (12.0-15.5) 01/07/20 06:10 Hct 37.1 % (36.0-47.0) 01/07/20 06:10 MCV 90 fl (80-97) 01/07/20 06:10 MCH 30.2 pg (27.0-33.4) 01/07/20 06:10 MCHC 33.7 g/dL (32.0-36.0) 01/07/20 06:10 RDW 12.5 % (11.5-14.0) 01/07/20 06:10 Plt Count 249 10^3/uL (150-450) 01/07/20 06:10 Lymph % (Auto) Not Reportable 01/03/20 19:05 Oliver % (Auto) Not Reportable 01/03/20 19:05 Eos % (Auto) Not Reportable 01/03/20 19:05 Baso % (Auto) Not Reportable 01/03/20 19:05 Absolute Neuts (auto) Not Reportable 01/03/20 19:05 Absolute Lymphs (auto) Not Reportable 01/03/20 19:05 Absolute Monos (auto) Not Reportable 01/03/20 19:05 Absolute Eos (auto) Not Reportable 01/03/20 19:05 Absolute Basos (auto) Not Reportable 01/03/20 19:05 Total Counted 100 01/03/20 19:05 Seg Neutrophils % Not Reportable 01/03/20 19:05 Seg Neuts % (Manual) 84 % (42-78) H 01/03/20 19:05 Lymphocytes % (Manual) 12 % (13-45) L 01/03/20 19:05 Monocytes % (Manual) 4 % (3-13) 01/03/20 19:05 Eosinophils % (Manual) 0 % (0-6) 01/03/20 19:05 Basophils % (Manual) 0 % (0-2) 01/03/20 19:05 Abs Neuts (Manual) 13.2 10^3/uL (1.7-8.2) H 01/03/20 19:05 Abs Lymphs (Manual) 1.9 10^3/uL (0.5-4.7) 01/03/20 19:05 Abs Monocytes (Manual) 0.6 10^3/uL (0.1-1.4) 01/03/20 19:05 Absolute Eos (Manual) 0.0 10^3/uL (0.0-0.6) 01/03/20 19:05 Abs Basophils (Manual) 0.0 10^3/uL (0.0-0.2) 01/03/20 19:05 Platelet Comment ADEQUATE 01/03/20 19:05 RBC Morph Comment NORMO-CYTIC/CHROMIC 01/03/20 19:05 Sodium 136.0 mmol/L (137-145) L 01/06/20 10:57 Potassium 3.8 mmol/L (3.6-5.0) 01/06/20 10:57 Chloride 102 mmol/L (98-107) 01/06/20 10:57 Carbon Dioxide 29 mmol/L (22-30) 01/06/20 10:57 Anion Gap 5 (5-19) 01/06/20 10:57 BUN 4 mg/dL (7-20) L 01/06/20 10:57 Creatinine 0.64 mg/dL (0.52-1.25) 01/06/20 10:57 Est GFR ( Amer) > 60 (>60) 01/06/20 10:57 Est GFR (MDRD) Non-Af > 60 (>60) 01/06/20 10:57 Glucose 130 mg/dL (75-110) H 01/06/20 10:57 Lactic Acid 0.8 mmol/L (0.7-2.1) 01/04/20 09:31 Calcium 8.1 mg/dL (8.4-10.2) L 01/06/20 10:57 Magnesium 1.8 mg/dL (1.6-2.3) 01/05/20 04:46 Total Bilirubin 1.1 mg/dL (0.2-1.3) 01/03/20 19:05 Direct Bilirubin 0.6 mg/dL (0.0-0.4) H 01/03/20 19:05 Neonat Total Bilirubin Not Reportable 01/03/20 19:05 Neonat Direct Bilirubin Not Reportable 01/03/20 19:05 Neonat Indirect Bili Not Reportable 01/03/20 19:05 AST 39 U/L (14-36) H 01/03/20 19:05 ALT 20 U/L (<35) 01/03/20 19:05 Alkaline Phosphatase 123 U/L (38-126) 01/03/20 19:05 Total Protein 6.5 g/dL (6.3-8.2) 01/03/20 19:05 Albumin 3.4 g/dL (3.5-5.0) L 01/03/20 19:05 Lipase 21.5 U/L (23-300) L 01/03/20 19:05 TSH 3.45 uIU/mL (0.47-4.68) 01/05/20 04:46 Serum HCG, Qual NEGATIVE (NEGATIVE) 01/03/20 19:05 Urine Color YELLOW 01/03/20 18:15 Urine Appearance CLOUDY 01/03/20 18:15 Urine pH 7.0 (5.0-9.0) 01/03/20 18:15 Ur Specific [place] 1.009 01/03/20 18:15 Urine Protein 100 mg/dL (NEGATIVE) H 01/03/20 18:15 Urine Glucose (UA) NEGATIVE mg/dL (NEGATIVE) 01/03/20 18:15 Urine Ketones 20 mg/dL (NEGATIVE) H 01/03/20 18:15 Urine Blood SMALL (NEGATIVE) H 01/03/20 18:15 Urine Nitrite POSITIVE (NEGATIVE) H 01/03/20 18:15 Urine Bilirubin NEGATIVE (NEGATIVE) 01/03/20 18:15 Urine Urobilinogen 4.0 mg/dL (<2.0) H 01/03/20 18:15 Ur Leukocyte Esterase LARGE (NEGATIVE) H 01/03/20 18:15 Urine WBC (Auto) 117 /HPF 01/03/20 18:15 Urine RBC (Auto) 9 /HPF 01/03/20 18:15 Urine Bacteria (Auto) 2+ /HPF 01/03/20 18:15 Urine WBC Clumps FEW /HPF 01/03/20 18:15 Squamous Epi Cells Auto 6 /HPF 01/03/20 18:15 Urine Ascorbic Acid NEGATIVE (NEGATIVE) 01/03/20 18:15 Impressions: Abdomen/Pelvis CT 01/03/20 18:34 IMPRESSION: Abnormal bilateral nephrograms, worse on the right. There is also right perinephric stranding. Bilateral pyelonephritis, right greater than left, is favored. Clinical correlation is recommended. TECHNICAL DOCUMENTATION: Quality ID # [id number]: Final reports with documentation of one or more dose reduction techniques (e.g., Automated exposure control, adjustment of the mA and/or kV according to patient size, use of iterative reconstruction technique) copyright 2011 [employer]- All Rights Reserved Plan Plan of Treatment: Patient is discharged home, in stable condition. She is advised to follow up with her primary care provider within 1 week. Complete full course of antibiotic therapy. Drink plenty of fluids, eat as tolerated. Return to the emergency department, as needed, for concerning symptoms. Time Spent: Greater than 30 Minutes Stroke Is this a Stroke Patient?: No Acute Heart Failure Is this a Heart Failure Patient?: No
== END 2020-01-07 11:13 | disposition home or self-care (01) | DRG 690 ==
LOC: ER 17:11 → EH 22:21 → 5 01-04 00:05
PROVIDERS: ADMIT Emergency Medicine; ATTEND Registered Nurse
DX: N10 Acute pyelonephritis (principal); I95.89 Other hypotension; B96.20 Unspecified Escherichia coli [E. coli] as the cause of diseases classified elsewhere; G89.29 Other chronic pain; M54.9 Dorsalgia, unspecified; F32.9 Major depressive disorder, single episode, unspecified; F43.10 Post-traumatic stress disorder, unspecified; E86.1 Hypovolemia; F17.210 Nicotine dependence, cigarettes, uncomplicated; Z60.2 Problems related to living alone; Z79.899 Other long term (current) drug therapy; Z98.1 Arthrodesis status; Z79.891 Long term (current) use of opiate analgesic; Z88.6 Allergy status to analgesic agent; Z88.2 Allergy status to sulfonamides; Z88.8 Allergy status to other drugs, medicaments and biological substances; Z82.61 Family history of arthritis; Z83.3 Family history of diabetes mellitus; Z80.9 Family history of malignant neoplasm, unspecified; Z82.49 Family history of ischemic heart disease and other diseases of the circulatory system
CPT/HCPCS: 36415; 74177; 80048; 80053; 81001; 83605; 83690; 83735; 84443; 84703; 85025; 85027; 87040; 87086; 87088; 87186; 96361; 96365; 96367; 96375; 96376; 99291; J0692; J0696; J1170; J1644; J2270; J3480; J3490; J7030; J7040; J7060; J7120; J7121